=== PATIENT | male | born 1965 | race Caucasian/White ===

== ENCOUNTER 2019-12-16 05:05 | Emergency (ER) | payer OTHER, SELFPAY ==
--- NOTE | ~2019-12-16 | CT_ITS ---
EXAMINATION: CT abdomen pelvis w con DATE: 12/16/2019 05:48 INDICATION: Right upper quadrant and epigastric abdominal pain. History of pancreatitis. TECHNIQUE: Computed tomography (CT) of the abdomen and pelvis was performed with 100 cc Omnipaque 350 intravenous contrast. Automated exposure control and iterative reconstruction technique were employe d. Exam dose: 1120.56 mGy-cm total exam DLP. COMPARISON: 12/16/2019 CT abdomen pelvis FINDINGS: The lung bases are clear. Normal heart size. No pericardial or pleural effusion. There is an approximately 6 mm left hepatic cyst. The liver, gallbladder, bile ducts, pancreas, pancr eatic duct and spleen are otherwise unremarkable. Normal morphology of the adrenal glands. 7 mm right renal probable cyst. 5 mm left renal probable cyst. The kidneys are otherwise unremarkable . No urinary tract calculus or hydroureteronephrosis. Normal caliber of the abdominal aorta. No intraperitoneal or retroperitoneal or pelvic mass lesion or adenopathy or ascites. The urinary bladder is unremarkable. Mild prostate enlargement, multiple prostate calcifications. There bilateral fat-containing inguinal hernias. Normal appendix. There is minimal diverticulosis of the left colon; no CT evidence of diverticulitis. No bowel obstruction, bowel wall thickening, pneumatosis or intraperitoneal free air. Degenerative changes of the thoracic and lumbar spine; no suspicious osteolytic or osteoblastic lesio ns are noted. IMPRESSION: Small hepatic and renal probable cysts Bilateral fat-containing inguinal hernias Mild prostate enlargement, multiple prostate calcifications Reviewed, dictated and finalized at [facility]. Reviewed, dictated and finalized at [facility].
--- NOTE | ~2019-12-16 | XR_ITS ---
XR chest 2V DATE: 12/16/2019 05:52 INDICATION: Lower mid chest pain, epigastric pain, back pain, nausea TECHNIQUE: PA and lateral views COMPARISON: 09/11/2011 portable AP chest FINDINGS: Normal heart size. No hilar or mediastinal enlargement. Moderate bilateral hyperinflation. No pulmonary infiltrate or consolidation, pleural effusion or pulm onary vascular congestion or pneumothorax. Normal heart size. There is minimal aortic unfolding. Degenerative spurring of the thoracic spine. IMPRESSION: No active cardiopulmonary disease Reviewed, dictated and finalized at [facility].
--- NOTE | 2019-12-16 05:08 | ECG_ITS ---
Measurements Intervals [place] Rate: 61 P: 53 NV: 219 QRS: 61 QRSD: 107 T: 51 QT: 403 QTc: 407 Interpretive Statements SINUS RHYTHM WITH FIRST DEGREE AV BLOCK BASELINE ARTIFACT- II, III, AVR, AVL, AVF ABNORMAL ECG Electronically Signed On 12-16-2019 7:02:33 CDT by Jim Mortensen D.O.
--- NOTE | 2019-12-16 05:08 | ED.ABDPAIN ---
HPI - Abdominal Pain General Chief Complaint: Abdominal Pain <Sylvie Damico MD - Last Filed: 12/16/19 06:26> Stated Complaint: Pancreas <Sylvie Damico MD - Last Filed: 12/16/19 06:26> Time Seen by Provider: 12/16/19 05:07 <Sylvie Damico MD - Last Filed: 12/16/19 06:26> Source: patient and family <Sylvie Damico MD - Last Filed: 12/16/19 06:26> Mode of arrival: wheelchair <Sylvie Damico MD - Last Filed: 12/16/19 06:26> Limitations: no limitations <Sylvie Damico MD - Last Filed: 12/16/19 06:26> History of Present Illness HPI narrative: Patient is a 54-year-old male with a history of biliary colic, pancreatitis who presents for evaluation of abdominal pain. Patient reports pain awakened him from sleep, he experiences the pain in a bandlike pattern across his upper abdomen in the epigastric area. Pain is described as sharp, cramping in nature with radiation to the middle back. He denies lower back pain, flank pain, no ripping or tearing sensation. He denies associated chest pain, cough or shortness of breath. He does report nausea and feeling diaphoretic. He denies any vomiting. Patient states in the past he was able to control the symptoms with a low-fat diet. Patient states this evening for dinner he had a salad and a beer bratwurst, and that may have exacerbated his symptoms. <Sylvie Damico MD - Last Filed: 12/16/19 06:26> Related Data Home Medications: Home Medications Medication Instructions Recorded Confirmed atenolol 12/16/19 lisinopril 12/16/19 omega-3 fatty acids [Fish Oil] 1,000 mg PO DAILY 12/16/19 rosuvastatin mg 12/16/19 sertraline mg 12/16/19 <Sylvie Damico MD - Last Filed: 12/16/19 06:26> Allergies/Adverse Reactions: Allergies Allergy/AdvReac Type Severity Reaction Status Date / Time Penicillins Allergy Unknown Hives Verified 12/16/19 05:29 <Sylvie Damico MD - Last Filed: 12/16/19 06:26> Review of Systems Review of Systems: Narrative: CONSTITUTIONAL: Reports feeling diaphoretic ENT: Denies rhinorrhea, congestion, sore throat, or otalgia. CARDIOVASCULAR: Denies chest pain, palpitations, or edema. RESPIRATORY: Denies cough or dyspnea. GASTROINTESTINAL: Reports abdominal pain, nausea without vomiting GENITOURINARY: Denies dysuria or hematuria. SKIN: Denies rash or itching. MUSCULOSKELETAL: Reports middle back pain NEUROLOGIC: Denies headache, numbness, or weakness. <Sylvie Damico MD - Last Filed: 12/16/19 06:26> [facility] Past Medical History Medical History: Medical History (Updated 12/16/19 @ 06:26 by Sylvie Damico MD) Acid reflux Anxiety Biliary colic Hypertension Pancreatitis Seasonal allergies <Sylvie Damico MD - Last Filed: 12/16/19 06:26> Surgical History Surgical History: Surgical History (Updated 12/16/19 @ 05:30 by Sylvie Damico MD) H/O hand surgery <Sylvie Damico MD - Last Filed: 12/16/19 06:26> Family History Family History: Family History (Updated 08/10/15 @ 10:58 by DOCTOR UNKNOWN) Mother Patient's mother is , Onset Age: 51 Other Hypertension <Sylvie Damico MD - Last Filed: 12/16/19 06:26> Social History Social History: Social History Smoking status: Never smoker Alcohol intake: current <Sylvie Damico MD - Last Filed: 12/16/19 06:26> Exam Narrative: Exam Narrative: GENERAL: Awake, alert, conversant HEAD: Normocephalic, atraumatic. EYES: PERRLA and EOMI. ENT: Nares clear, no rhinorrhea or epistaxis. Mucous membranes moist. NECK: Supple. CHEST: No respiratory distress, breathing even and non labored HEART: Regular rate, sinus rhythm ABDOMEN:Non distended, mildly tender in periumbilical area, epigastric, right upper quadrant and left upper quadrant, no rebound, nonrigid, no guarding EXTREMITIES: Normal range of motion. No edema. SKIN: Warm, dry, no rash. NEURO:No focal deficits.
[2019-12-16 05:09] VITALS: BP 157/85; PULSE 61; RESP 12; TEMP 36.7; O2SAT 100
[2019-12-16 05:23] LABS: Basophils Percent Auto 0.3 % (0.2-1.2); Eosinophils Percent Auto 0.1 % (0-4.4); Hematocrit 48.4 % (42.0-52.0); Hemoglobin 16.7 g/dL (14.0-18.0); Immature Granulocyte Absolute 0.03 K/mm3 (0.00-0.031); Immature Granulocyte Percent A 0.3 % (0-0.5); Immature Platelet Fraction Pct 10.3 % (0.9-11.2); Lymphocytes Absolute Auto 1.66 K/mm3 (0.9-3.2); Lymphocytes Percent Auto 16.8 % (18.3-44.2); Mean Corpuscular HGB Conc 34.5 g/dl (32-36); Mean Corpuscular Hemoglobin 30.9 pg (26-34); Mean Corpuscular Volume 89.5 fl (80-100); Mean Platelet Volume 11.8 fl (7.4-10.4); Monocytes Absolute Auto 0.5 K/mm3 (0.1-0.6); Monocytes Percent Auto 4.9 % (2.6-8.5); Neutrophils Absolute Auto 7.7 K/mm3 (1.3-6.7); Neutrophils Percent Auto 77.6 % (45.5-73.1); Platelet Count Result 144 k/mm3 (150-375); Red Blood Count 5.41 M/mm3 (4.6-6.20); Red Cell Distribution Width 12.6 % (11.5-14.5); White Blood Count 9.9 K/mm3 (4.5-10.0)
[2019-12-16] MEDS: ONDANSETRON INJ 4 MG/2 ML VIAL IV PUSH (05:23)
[2019-12-16] MEDS: SODIUM CHLORIDE 0.9% IV 1,000 ML 999 ML IV CONT (05:23)
[2019-12-16] MEDS: MORPHINE SULFATE (*CRX) 4 MG/ML INJ IV PUSH (05:23)
[2019-12-16 05:34] LABS: Alanine Aminotransferase 26 U/L (4-50); Albumin Level 4.7 g/dL (3.5-5.1); Alkaline Phosphatase 103 U/L (38-126); Anion Gap 13 mmol/L (8-16); Aspartate Amino Transferase 41 U/L (17-59); Bilirubin,Total 0.6 mg/dL (0.2-1.3); Blood Urea Nitrogen 21 mg/dL (9-20); Calcium 10.4 mg/dL (8.4-10.2); Carbon Dioxide 24 mmol/L (22-30); Chloride 105 mmol/L (98-107); Estimated Glomerular Filt Rate > 60; Glucose 150 mg/dL (75-110); Lipase 239 U/L (23-300); Potassium 4.1 mmol/L (3.4-5.0); Sodium 142 mmol/L (137-145)
[2019-12-16 05:36] LABS: Glucose Point of Care 143 (65-105)
[2019-12-16 05:36] LABS: Partial Thromboplastin Time 30.3 SECONDS (22.3-36.8); Prothrombin Time 13.1 Seconds (11.1-14.7)
[2019-12-16 05:45] LABS: Troponin I < 0.012 ng/mL (0.000-0.034)
[2019-12-16] MEDS: DICYCLOMINE HCL INJ 20 MG/2 ML VIAL IM (06:19)
[2019-12-16] MEDS: BELLADONNA ALK/PHENOB ELIX 10 ML, MAG HYDROX/ALUMINUM HYD/SIMETH 30 ML, LIDOCAINE HCL 2... PO (06:19)
[2019-12-16] MEDS: ASPIRIN 81 MG CHEWABLE TABLET 324 MG PO (06:39)
[2019-12-16 06:54] LABS: Add Urine Microscopic? NO; Appearance Urine Clear (Clear); Bilirubin Urine Negative (Negative); Blood Urine Negative (Negative); Color Urine Yellow (Yellow); Glucose Urine UA Negative (Negative); Ketones Urine Negative (Negative); Leukocyte Esterase Ur Negative LEU/UL (Negative); Mucus Urine Rare /lpf; Nitrate Urine Negative (Negative); Protein Urine Negative (Negative); RBC Urine 0-2 /hpf (0-2); Squamous Epithelial Cell Urine Rare /hpf (Few); Urobilinogen Urine Negative mg/dL (<2.0); WBC Urine 0-3 /hpf
[2019-12-16 07:03] LABS: Specific Grav Ur > 1.060 (1.001-1.035)
--- NOTE | 2019-12-16 07:20 | PC.NURSE ---
rn report given to
[2019-12-16 07:26] VITALS: BP 152/90; PULSE 54; RESP 16; O2SAT 100
--- NOTE | 2019-12-16 07:26 | PC.NURSE ---
Assumed care of pt, pt is alert and upright on the stretcher, female at bedside. VSS. Pt states I need something else for pain, we need to figure out whats wrong. I felt better with the morphine and GI cocktail, but now the pain is back. - EDP aware.
[2019-12-16 08:25] VITALS: BP 146/80; PULSE 54; RESP 19; O2SAT 99
[2019-12-16 08:56] LABS: Troponin I < 0.012 ng/mL (0.000-0.034)
[2019-12-16 09:26] VITALS: BP 156/90; PULSE 50; RESP 14; O2SAT 99
== END 2019-12-16 09:27 | disposition home or self-care (01) ==
PROVIDERS: Emergency Medicine; Emergency Provider Emergency Medicine; PCP Family Medicine
DX: R10.13 Epigastric pain (principal); K21.9 Gastro-esophageal reflux disease without esophagitis; F41.9 Anxiety disorder, unspecified; I10 Essential (primary) hypertension; I44.0 Atrioventricular block, first degree; K40.90 Unilateral inguinal hernia, without obstruction or gangrene, not specified as recurrent; N40.0 Benign prostatic hyperplasia without lower urinary tract symptoms
CPT/HCPCS: 36415; 71046; 74177; 80053; 81003; 82948; 83690; 84484; 85025; 85055; 85610; 85730; 93005; 96361; 96372; 96374; 96375; 99284; A9270; J0500; J2270; J2405; J7030; Q9967

== ENCOUNTER 2020-01-06 09:55 | Outpatient (CLI) | payer OTHER, SELFPAY ==
--- NOTE | ~2020-01-06 | US_ITS ---
EXAMINATION: US right upper quadrant EXAM DATE: 01/06/2020 10:28 INDICATION: Abdominal pain. TECHNIQUE: Multiple grayscale and Doppler images of the abdomen right upper quadrant were obtained (jason y a technologist who performed the scan) and subsequently reviewed. There is no prior study for deondre colon. FINDINGS: The pancreatic head and body are normal in appearance. The pancreatic tail is not visualized. The l iver has normal echogenicity and contour. There are no focal liver lesions identified. There is no evidence of intrahepatic biliary duct dilation. Portal venous flow was seen in the hepatopedal, nor mal direction and has normal Doppler waveform. No right-sided hydronephrosis. Common bile duct measures 4 mm, which is normal. The gallbladder wall is normal in thickness, with ex pected amount of distention. No sonographic evidence of pericholecystic fluid. There is no cholelit hiases. Technologist performing exam reports patient did not demonstrate sonographic Cueto's sign. Please note that this sign is less reliable in patients who have received pain medication. IMPRESSION: 1. Unremarkable abdominal ultrasound exam. Reviewed, dictated and finalized at location [facility]. 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
== END 2020-01-06 09:56 | disposition home or self-care (01) ==
PROVIDERS: PCP Family Medicine; Visit Provider Nurse Practitioner
DX: R10.9 Unspecified abdominal pain (principal)
CPT/HCPCS: 76705

== ENCOUNTER 2020-06-14 15:05 | Outpatient (CLI) | payer OTHER, SELFPAY ==
--- NOTE | ~2020-06-14 | US_ITS ---
EXAMINATION: US soft tissue groin RT, US soft tissue groin LT DATE: 06/14/2020 15:53 INDICATION: Bilateral inguinal hernias TECHNIQUE: Multiple grayscale and Doppler ultrasound images of the left and right inguinal regions of concern were obtained. COMPARISON: CT abdomen and pelvis dated 12/16/2019 FINDINGS: There are bilateral fat-containing inguinal hernias which are also seen on prior CT. There is some mo vement of the fat within the left inguinal hernia with Valsalva. No herniated bowel identified. IMPRESSION: 1. Bilateral fat-containing inguinal hernias. Reviewed, dictated and finalized at location [facility]. IMPRESSION: 1. Bilateral fat-containing inguinal hernias.
== END 2020-06-14 15:06 | disposition home or self-care (01) ==
PROVIDERS: PCP Family Medicine; Visit Provider Nurse Practitioner Family
DX: K40.21 Bilateral inguinal hernia, without obstruction or gangrene, recurrent (principal)
CPT/HCPCS: 76882

== ENCOUNTER → 2020-07-10 02:07 | Outpatient (CLI) | payer OTHER, SELFPAY ==
[2020-07-10 19:55] LABS: SARS-CoV-2 RNA PCR Negative
== END ==
PROVIDERS: PCP Family Medicine; Visit Provider Internal Medicine Gastroenterology
DX: Z01.812 Encounter for preprocedural laboratory examination (principal); Z20.822 Contact with and (suspected) exposure to COVID-19
CPT/HCPCS: C9803; U0003; U0005

== ENCOUNTER 2020-07-13 03:23 | Day surgery (SDC) | payer OTHER, SELFPAY ==
[2020-07-01 13:41] VITALS: BMI 30.7
[2020-07-13 10:45] VITALS: BP 121/86; PULSE 62; RESP 20; TEMP 35.9; O2SAT 98
[2020-07-13] MEDS: LACTATED RINGERS 1,000 ML 150 ML IV CONT (10:53)
--- NOTE | 2020-07-13 11:02 | WPDGICN ---
Assessment and Plan Assessment and plan (1) History of colon polyps: Code(s): Z86.010 - Personal history of colonic polyps Status: Acute Assessment and Plan: Patient has a history of colon polyps as well as a family history of colon polyps for this reason colonoscopy will be performed now and should be considered at 5 year intervals in the future. (2) Inguinal hernia without obstruction or gangrene: Qualifiers: Laterality: bilateral Recurrence: non-recurrent Qualified Code(s): K40.20 - Bilateral inguinal hernia, without obstruction or gangrene, not specified as recurrent Code(s): K40.90 - Unilateral inguinal hernia, without obstruction or gangrene, not specified as recurrent Status: Acute Assessment and Plan: Patient followed by Dr. Clay for possible a ventral hernia repair. GI Consult Note Consult date/time: 07/13/20 11:02 HPI: Alessio Figueroa is a 54 year old male Presents for screening colonoscopy. patient reports his weight appetite bowel movements are normal. He denies abdominal pain or bleeding. Patient is known to have had colon polyps in the past most recently 5 years ago. His family history is significant for colon polyps in brother and father. Recently seen by surgery and evaluation for left inguinal hernia. Plan is for screening colonoscopy prior to anticipated hernia repair. Review of Systems Review of Systems: All systems reviewed & are unremarkable except as noted in HPI and below PMFSH Past Medical History Medical History (Updated 06/25/20 @ 15:07 by Margaret Camilo) Acid reflux Anxiety Biliary colic Hypertension Pancreatitis Seasonal allergies Family History Family History (Updated 06/24/20 @ 10:03 by Libia Rucker [facility]) Mother Patient's mother is , Onset Age: 51 Father Hypertension Hernia Sibling Hodgkin lymphoma Sibling Diabetes mellitus Heart disease Hypertension Social History Social History (Updated 06/24/20 @ 10:04 by Libia Rucker [facility]) Smoking status: Never smoker Alcohol intake: former Drinks per week: 4 Alcohol use details: NONE SINCE 2018 Substance use: current Substance use type: marijuana Last use: 06/30/20 Living arrangements: with friend(s) 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 Gender identity (if verbalized by the patient): Male Spiritual care concerns: No Meds Home Medications and Allergies Home Medications Medication Instructions Recorded Confirmed Type atenolol 25 mg PO DAILY 12/16/19 07/01/20 History lisinopril 5 mg PO DAILY 12/16/19 07/01/20 History rosuvastatin 20 mg PO DAILY 12/16/19 07/01/20 History sertraline 50 mg PO DAILY 12/16/19 07/01/20 History melatonin 10 mg capsule 10 mg PO QHS 06/23/20 07/01/20 History coenzyme Q10 75 mg capsule 75 mg PO DAILY 06/24/20 07/01/20 History tamsulosin 0.4 mg capsule 0.4 mg PO DAILY #30 cap 06/24/20 07/01/20 Rx Allergies Allergy/AdvReac Type Severity Reaction Status Date / Time Penicillins Allergy Unknown Hives Verified 07/13/20 10:41 Vital Signs Vital Signs - 24 hr 07/13/20 10:45 Temperature 96.7 F L Pulse Rate 62 Respiratory Rate 20 Blood Pressure 121/86 Pulse Oximetry 98 Exam Narrative: Exam Narrative: Physical exam reveals patient be alert. Vital signs stable. HEENT exam is unremarkable. Patient is anicteric. Lungs are clear to auscultation and percussion. Heart is without murmur or extra sounds. Abdominal exam bowel sounds are present soft nontender with no organomegaly. Digital external rectal exam is normal.
--- NOTE | 2020-07-13 11:14 | WPDANESEPPF ---
Anes - Initial Pre Proc Eval Procedure: Operation Date: 07/13/20 11:45 Proposed Procedures p Screening Colonoscopy - Alessio Norris MD Date/Time: 07/13/20 11:14 Surgeon: Alessio Norris MD Pre Op Diagnosis: hx of colon polyps Patient Data Age: 54 Gender: M Height: 5 ft 10 in Weight: 91.8 kg Last Vital Signs Temp 96.7 F L 07/13/20 10:45 Pulse 62 07/13/20 10:45 Resp 20 07/13/20 10:45 BP 121/86 07/13/20 10:45 Pulse Ox 98 07/13/20 10:45 Allergies Allergy/AdvReac Type Severity Reaction Status Date / Time Penicillins Allergy Unknown Hives Verified 07/13/20 10:41 Home Medications Medication Instructions Recorded Confirmed Type atenolol 25 mg PO DAILY 12/16/19 07/01/20 History lisinopril 5 mg PO DAILY 12/16/19 07/01/20 History rosuvastatin 20 mg PO DAILY 12/16/19 07/01/20 History sertraline 50 mg PO DAILY 12/16/19 07/01/20 History melatonin 10 mg capsule 10 mg PO QHS 06/23/20 07/01/20 History coenzyme Q10 75 mg capsule 75 mg PO DAILY 06/24/20 07/01/20 History tamsulosin 0.4 mg capsule 0.4 mg PO DAILY #30 cap 06/24/20 07/01/20 Rx Patient hx anesthesia problems: none Family hx anesthesia problems: none [facility] Past Medical History Medical History (Updated 06/25/20 @ 15:07 by Margaret Camilo) Acid reflux Anxiety Biliary colic Hypertension Pancreatitis Seasonal allergies Family History Family History (Updated 06/24/20 @ 10:03 by Libia Rucker [facility]) Mother Patient's mother is , Onset Age: 51 Father Hypertension Hernia Sibling Hodgkin lymphoma Sibling Diabetes mellitus Heart disease Hypertension Social History Social History (Updated 06/24/20 @ 10:04 by Libia Rucker PROMOTIONAL DEMONSTRATOR) Smoking status: Never smoker Alcohol intake: former Drinks per week: 4 Alcohol use details: NONE SINCE 2018 Substance use: current Substance use type: marijuana Last use: 06/30/20 Living arrangements: with friend(s) 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 Questions were solicited and answers provided to the satisfaction of the patient/family/POA.
[2020-07-13 11:36] VITALS: BP 93/61; PULSE 54; RESP 26; O2SAT 92
[2020-07-13 11:46] VITALS: BP 96/64; PULSE 53; RESP 25; O2SAT 92
[2020-07-13 11:56] VITALS: BP 101/70; PULSE 59; RESP 16; O2SAT 94
== END 2020-07-13 12:05 | disposition home or self-care (01) ==
PROVIDERS: PCP Family Medicine; Visit Provider Internal Medicine Gastroenterology
PROC: 0DJD8ZZ Inspection of Lower Intestinal Tract, Via Natural or Artificial Opening Endoscopic (ICD-10-PCS; CPT 45378; principal; 2020-07-13 11:45)
DX: Z12.11 Encounter for screening for malignant neoplasm of colon (principal); D12.4 Benign neoplasm of descending colon; K40.90 Unilateral inguinal hernia, without obstruction or gangrene, not specified as recurrent; K21.9 Gastro-esophageal reflux disease without esophagitis; F41.9 Anxiety disorder, unspecified; I10 Essential (primary) hypertension; F12.90 Cannabis use, unspecified, uncomplicated; Z86.010 Personal history of colon polyps
CPT/HCPCS: 45385; 88305; C9803; J2001; J2704; J7120; U0003; U0005

== ENCOUNTER 2020-07-23 09:51 | Outpatient (CLI) | payer OTHER, SELFPAY ==
--- NOTE | 2020-07-23 10:04 | ECG_ITS ---
Measurements Intervals [place] Rate: 47 P: 53 TX: 246 QRS: 62 QRSD: 94 T: 61 QT: 407 QTc: 363 Interpretive Statements SINUS BRADYCARDIA WITH FIRST DEGREE AV BLOCK ABNORMAL ECG Electronically Signed On 07-23-2020 11:21:06 CDT by Jim Mortensen D.O.
[2020-07-23 10:23] LABS: Hematocrit 47.6 % (42.0-52.0); Hemoglobin 15.6 g/dL (14.0-18.0); Mean Corpuscular HGB Conc 32.8 g/dl (32-36); Mean Corpuscular Hemoglobin 29.8 pg (26-34); Mean Corpuscular Volume 90.8 fl (80-100); Mean Platelet Volume 11.8 fl (7.4-10.4); Platelet Count Result 122 k/mm3 (150-375); Red Blood Count 5.24 M/mm3 (4.6-6.20); Red Cell Distribution Width 13.3 % (11.5-14.5); White Blood Count 8.1 K/mm3 (4.5-10.0)
[2020-07-23 10:34] LABS: Alanine Aminotransferase 20 U/L (4-50); Albumin Level 4.4 g/dL (3.5-5.1); Alkaline Phosphatase 81 U/L (38-126); Anion Gap 10 mmol/L (8-16); Aspartate Amino Transferase 29 U/L (17-59); Bilirubin,Total 0.4 mg/dL (0.2-1.3); Blood Urea Nitrogen 19 mg/dL (9-20); Calcium 10.1 mg/dL (8.4-10.2); Carbon Dioxide 25 mmol/L (22-30); Chloride 107 mmol/L (98-107); Estimated Glomerular Filt Rate > 60; Glucose 127 mg/dL (75-110); Potassium 4.2 mmol/L (3.4-5.0); Sodium 142 mmol/L (137-145)
== END 2020-07-23 09:52 | disposition home or self-care (01) ==
LOC: ANHSURGERY 09:56
PROVIDERS: PCP Family Medicine; Visit Provider Surgery
DX: Z01.818 Encounter for other preprocedural examination (principal); K40.20 Bilateral inguinal hernia, without obstruction or gangrene, not specified as recurrent; I44.0 Atrioventricular block, first degree
CPT/HCPCS: 36415; 80053; 85027; 86850; 86900; 86901; 93005

== ENCOUNTER → 2020-07-24 01:42 | Outpatient (CLI) | payer OTHER, SELFPAY ==
[2020-07-24 19:38] LABS: SARS-CoV-2 RNA PCR Negative
== END ==
PROVIDERS: PCP Family Medicine; Visit Provider Surgery
DX: Z01.812 Encounter for preprocedural laboratory examination (principal); Z20.822 Contact with and (suspected) exposure to COVID-19
CPT/HCPCS: C9803; U0003; U0005

== ENCOUNTER 2020-07-26 01:50 | Day surgery (SDC) | payer OTHER, SELFPAY ==
[2020-07-26] VITALS (12 sets, daily range): BP systolic 131–161; BP diastolic 74–109; PULSE 48–95; RESP 13–23; TEMP 36.2; O2SAT 96–100; BMI 31.6
--- NOTE | ~2020-07-26 | XR_ITS ---
EXAMINATION: XR chest 1V portable DATE: 07/27/2020 00:05 INDICATION: Chest pain TECHNIQUE: frontal view of the chest was obtained. COMPARISON: Chest radiograph dated 12/16/2019 FINDINGS: The lungs are clear with no focal airspace opacities, pulmonary edema, pleural effusion or pneumothor ax. The cardiomediastinal silhouette is normal. There is some lucency underlying the diaphragm suspic ious for free intraperitoneal gas which may be related to reported recent hernia surgery. IMPRESSION: 1. No acute cardiopulmonary disease. 2. Suggestion of very small amount of free intraperitoneal gas below the diaphragm which could be rel ated to reported recent hernia surgery. Reviewed, dictated and finalized at location A. IMPRESSION: 1. No acute cardiopulmonary disease. 2. Suggestion of very small amount of free intraperitoneal gas below the diaphr agm which could be related to reported recent hernia surgery.
[2020-07-26] MEDS: LACTATED RINGERS 1,000 ML 30 ML IV CONT ×3 (09:40→20:15)
[2020-07-26] MEDS: ACETAMINOPHEN 500 MG TABLET 1000 MG PO (10:19)
--- NOTE | 2020-07-26 10:20 | WPDANESEPPF ---
Anes - Initial Pre Proc Eval Procedure: Operation Date: 07/26/20 11:00 Proposed Procedures p Laparoscopic Totally Extra Peritoneal Bilateral Inguinal Hernia Repair - Peterson Clay MD Date/Time: 07/26/20 10:20 Surgeon: Peterson Clay MD Pre Op Diagnosis: bilateral inguinal hernia Patient Data Age: 54 Gender: M Height: 5 ft 10 in Weight: 95 kg Allergies Allergy/AdvReac Type Severity Reaction Status Date / Time Penicillins Allergy Unknown HIVES OR Verified 07/26/20 09:25 RASH A CHILD Home Medications Medication Instructions Recorded Confirmed Type atenolol 25 mg PO QAM 12/16/19 07/26/20 History lisinopril 5 mg PO QAM 12/16/19 07/26/20 History rosuvastatin 20 mg PO DAILY 12/16/19 07/26/20 History melatonin 10 mg capsule 10 mg PO QHS PRN 06/23/20 07/26/20 History coenzyme Q10 75 mg capsule 75 mg PO DAILY 06/24/20 07/26/20 History docusate sodium [Colace] 50 mg PO HS PRN 07/22/20 07/26/20 History sertraline 100 mg PO QAM 07/22/20 07/26/20 History tamsulosin 0.4 mg PO HS 07/22/20 07/26/20 History Patient hx anesthesia problems: none Family hx anesthesia problems: none PMFSH Past Medical History Medical History (Updated 07/22/20 @ 08:27 by Margaret Camilo) Acid reflux Anxiety Biliary colic Hypertension Pancreatitis Seasonal allergies Surgical History Surgical History (Updated 07/22/20 @ 08:05 by Libia Rucker CMA) H/O surgical amputation of finger Family History Family History Mother Patient's mother is , Onset Age: 51 Father Hypertension Hernia Sibling Hodgkin lymphoma Sibling Diabetes mellitus Heart disease Hypertension Social History Social History Smoking status: Never smoker Alcohol intake: former Drinks per week: 4 Substance use: never Substance use type: marijuana Last use: 06/30/20 Living arrangements: other Additional living arrangements comments: [place] 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 Questions were solicited and answers provided to the satisfaction of the patient/family/POA.
[2020-07-26] MEDS: KETOROLAC 15 MG/ML VIAL (*BKC) IV PUSH (10:21)
--- NOTE | 2020-07-26 11:09 | WPDHPUPDATE1 ---
History and Physical Update Update Date/Time: 07/26/20 11:09 History and Physical has been reviewed, including an updated exam of the patient. There are NO changes in the patient's condition. Risks, benefits, and alternatives have been discussed and questions answered. Patient agrees to proceed with procedure.
[2020-07-26] MEDS: BUPIVACAINE/EPINEPHRINE 0.5% 10 ML VIAL 20 ML INFILTRATE (11:15)
[2020-07-26] MEDS: ceFAZolin 2 GM/D5W 50 ML 2 GM/50 ML BAG IVPB (11:34)
[2020-07-26] MEDS: fentaNYL CITRATE INJ (*CRX) 100 MCG/2 ML VIAL 25 MCG IV PUSH ×5 (18:10→21:10)
--- NOTE | 2020-07-26 18:27 | WPDURCON ---
Assessment and Plan Assessment and plan (1) Ectopic testicle: Code(s): Q53.00 - Ectopic testis, unspecified Status: Acute Urology Consult Note HPI Date Seen: 07/26/20 Requesting Physician: Peterson Clay MD Primary Care Provider: Gonzalo Gupta MD Consult Narrative Narrative: Alessio Figueroa is a 54 year old male has a known to our practice. He was undergoing laparoscopic left inguinal herniorrhaphy when we were consulted by Dr. Pascale Clay for evaluation of ectopic testicle. His left testicle had been displaced into the peritoneal cavity in the course of dissection of the left inguinal hernia. Laparoscopically, the testicle appeared normal and the spermatic cord was uninjured. For specifics on replacement of the testicle in the left hemiscrotum with orchiopexy please see the operative note. Review of Systems Review of Systems: ROS unobtainable: Yes unobtainable due to medical condition PMFSH Past Medical History Medical History (Updated 07/26/20 @ 18:30 by Toñito Patel MD) Acid reflux Anxiety Biliary colic Hypertension Pancreatitis Seasonal allergies Surgical History Surgical History (Updated 07/22/20 @ 08:05 by Libia Rucker CMA) H/O surgical amputation of finger Family History Family History Mother Patient's mother is , Onset Age: 51 Father Hypertension Hernia Sibling Hodgkin lymphoma Sibling Diabetes mellitus Heart disease Hypertension Social History Social History Smoking status: Never smoker Alcohol intake: former Drinks per week: 4 Substance use: never Substance use type: marijuana Last use: 06/30/20 Living arrangements: other Additional living arrangements comments: [place] 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 Gender identity (if verbalized by the patient): Male Spiritual care concerns: No Meds Home Medications and Allergies Home Medications Medication Instructions Recorded Confirmed Type atenolol 25 mg PO QAM 12/16/19 07/26/20 History lisinopril 5 mg PO QAM 12/16/19 07/26/20 History rosuvastatin 20 mg PO DAILY 12/16/19 07/26/20 History melatonin 10 mg capsule 10 mg PO QHS PRN 06/23/20 07/26/20 History coenzyme Q10 75 mg capsule 75 mg PO DAILY 06/24/20 07/26/20 History docusate sodium 50 mg PO HS PRN 07/22/20 07/26/20 History sertraline 100 mg PO QAM 07/22/20 07/26/20 History tamsulosin 0.4 mg PO HS 07/22/20 07/26/20 History hydrocodone-acetaminophen 1 tablet PO Q6H PRN #20 tablet 07/26/20 Rx Allergies Allergy/AdvReac Type Severity Reaction Status Date / Time Penicillins Allergy Unknown HIVES OR Verified 07/26/20 09:25 RASH A CHILD Vital Signs Vital Signs - 24 hr 07/26/20 08:56 07/26/20 18:00 Temperature 97.1 F L 97.2 F L Pulse Rate 48 L 70 Respiratory Rate 20 17 Blood Pressure 131/83 131/78 Pulse Oximetry 100 98
--- NOTE | 2020-07-26 18:31 | P.OP_ITS ---
Procedure Note - Detailed Date of Procedure 07/26/20 Pre-op Diagnosis bilateral inguinal hernia Post-op Diagnosis other ( Ectopic left testicle) Procedure Performed scrotal exploration with left orchiopexy Surgeon Toñito Patel MD Automation And Control Engineer None Anesthesia general Indications ectopic left testicle Findings normal left testicle Description of Procedure Patient is in the operative suite Dr. Clay is undertaking it laparoscopic inguinal herniorrhaphy. During the course of dissection his left testicle became displaced into his peritoneal cavity. With inspection both the left t esticle and spermatic cord are on injured and he has manipulated the testicle back into the inguinal canal. With traction on the testicle is manipulated into the dependent portion of the left hemiscrotum, replacing it into its orthotopic position. After completion of the laparoscopic inguinal herniorrhaphy I made a incision in the median raphe of the scrotum and carried it into the left tunica vaginalis. Testicle was again examined and found to be normal both in appearance and palpation. Using a try angulated pattern of 2 0 Prolene sutures the left testicle is pexed in the left hemiscrotum in an orthotopic position. Dartos muscle was closed with 3 O chromic. Scrotal skin is likewise closed with 3 O chromic. Estimated Blood Loss -20.0 Urine Output -300.0 Packing No Pathology none sent Complications No immediate complications Condition stable
[2020-07-26] MEDS: ONDANSETRON INJ 4 MG/2 ML VIAL IV PUSH ×2 (19:07→23:21)
[2020-07-26] MEDS: diphenhydrAMINE HCl INJ 50 MG/ML VIAL 25 MG IV PUSH (19:20)
[2020-07-26] MEDS: SCOPOLAMINE 1.5 MG PATCH TRANSDERM (19:24)
--- NOTE | 2020-07-26 20:52 | SUR.PHASEII ---
2044 Dr Clay notified on pt current status and pt/spouse desire for pt to stay the night. dr clay ok with and will put orders in. 2048 spoke with laborer beam house and dr clay wanting pt to stay the night on 2nd medical floor.
--- NOTE | 2020-07-26 21:20 | PM.EVENT ---
Event Note Event Note Event Note: Demerol 25 mg given IVP at 2057 for shivering.
--- NOTE | 2020-07-26 21:42 | SUR.PHASEII ---
2129 pt has had a total of about 3500ml in iv fluids since start of surgery. savage cath was removed after surgery and had about 300ml out. pt has only voided about 15ml, bladder scan only showed 90ml, pt had tried to void a couple of times. dr mai is aware of this and has orders in for straight cath if needed.
--- NOTE | 2020-07-26 21:47 | SUR.PHASEII ---
2672 sbar faxed floor notified
--- NOTE | 2020-07-26 22:03 | SUR.PHASEII ---
2104 25mg iv push demerol given, but unable to have elvia plascencia crna, lenny he couldn't sign.
--- NOTE | 2020-07-26 22:33 | ADMGEN ---
This patient, Alessio Figueroa, was admitted to Medical Room 244-. Patient/family oriented to hospital policies and general routines including ID bracelet, bed and alarms, visiting hours, pain management, procedures, bathroom and other care routines, personal items, smoking policy, room service/diet, and visiting hours. Information on how to activate the Rapid Response Team has been discussed. Patient/Family are encouraged to report perceived risks to care and to ask questions if they do not understand what they are told or what they should do.
--- NOTE | 2020-07-26 22:41 | W.PM.PROC2 ---
Procedure Note - Detailed Date of Procedure 07/26/20 Pre-op Diagnosis bilateral inguinal hernia Post-op Diagnosis same Procedure Performed 1. Totally Extra-peritoneal bilateral inguinal hernia repairs with mesh 2. Left Orchieopexy by Dr. Patel Surgeon Peterson Clay MD Shingle Carrier Julianna LE.OR. Ditch Cleaner Anesthesia general Indications Left groin discomfort PE findings of bilateral inguinal hernias. Findings Large left indirect and small right indirect inguinal hernias Left testicle was found to be with the preperitoneal space after completion of the dissection of very large left inguinal hernia. Help was requested and provided by Dr. Patel. Please see his op note for further details. Description of Procedure After appropriate marking of the operative sites (bilateral groins) prior to surgery, the patient was taken to the operating room. After induction of adequate general endotracheal anesthesia by [facility] staff, a savage cather was placed and then the patient was carefully prepped and draped in a sterile fashion. A timeout was performed confirming the procedure and site of surgery to be the bilateral inguinal areas. Following this, local anesthetic was infiltrated into the umbilical area and a vertical incision was made just below the umbilicus. I carefully dissected down to the the anterior rectus sheath on the right and then made a 1 cm vertical slit in the fascia just off the midline. The rectus muscle was retracted to the right and then just in front of the posterior rectus sheath, a dissecting balloon was passed onto the pubic bone and this was insufflated with 40 pumps, while watching with the 0 degree laparoscope. It appeared that I was in the proper plane. Following this, the dissecting balloon was removed and replaced by a Yung cannula with a 25 cc circular balloon on it. Following this, the 0 degree laparoscope was used to carefully place two slim-line 5mm [employer] trocars in the midline inferior to the umbilicus. One suprapubic and other one fci between the umbilicus and the pubic bone. Tedious dissection then occurred in the preperitoneal space exposing the Jax's ligament, the cord structures, the muscular tissue anteriorly, and the retroperitoneum on each side. I purposely dissected out the side of the larger hernia,[left][right], so that I knew that we would be able to fix the more symptomatic side. With the peritoneum dissected back far enough on each side I was then able visualize the posterior peritoneum to be sure that the posterior edge of the mesh would lay in a way that the posterior peritoneum would then fall on the mesh and not go up under it. I then dissected up to the level of the umbilicus and was ready for mesh placement. After carefully confirming all sites and that the mesh would cover the direct space, I carefully rolled the left and right mesh sequentially and slid them through the 12 mm trocar at the umbilical level down into the preperitoneal space. These unfurled nicely and sat nicely against the groin structures. The appropriate sides were matched and it was easy to see that the pieces of mesh nicely covered all spaces and went back nicely into the preperitoneal space along the anterior-superior iliac spine. I took a picture of carefully, which showed that the mesh will cover the preperitoneal groin well, and had come down to the posterior border of the peritoneum. Should be mentioned that the dissection the left side was difficult. Was difficult to separate the large indirect hernia sac the cord structures. Once I had completed dissecting the hernia sac off cord structures I carefully opened the drapes felt the scrotum checking to be sure that the left testicle seem to be in good position and it seemed to be. This was done because the wound be sure that I pulled the testicle up into the preperitoneal space. Minor bleeding occurred while we were placing the mesh this case I did
[2020-07-26] MEDS: LACTATED RINGERS 1,000 ML 75 ML IV CONT (22:51)
--- NOTE | 2020-07-26 23:37 | ECG_ITS ---
Measurements Intervals Tracy Rate: 59 P: 55 ID: [id number] QRS: 59 QRSD: 101 T: 42 QT: 428 QTc: 426 Interpretive Statements SINUS BRADYCARDIA WITH FIRST DEGREE AV BLOCK BASELINE ARTIFACT- II, III, AVR, AVL, AVF, V1 ABNORMAL ECG Electronically Signed On 07-27-2020 7:10:23 CDT by Jim Mortensen D.O.
[2020-07-27] VITALS: BP 154/54; PULSE 70; RESP 20; TEMP 36.2; O2SAT 99
--- NOTE | 2020-07-27 | ECHO_ITS ---
Patient Info Name: Alessio Figueroa Age: 54 years : 1965 Gender: Male Ht: 70 in Wt: 220 lbs BSA: 2.25 m2 HR: 53 bpm Heart Rhythm: Sinus Rhythm Exam Date: 07/27/2020 10:54 AM Exam Location: [facility] Patient Status: Outpatient Admit Date: 07/26/2020 Staff Ordering Physician: Nicole Rice PA-C Aircraft Armament Mechanic: MARY Attending Provider: Peterson Clay MD Referring Physician: Dwayne CORRIGAN; Exam Type: CA echo doppler color flow Study Info Indications R07.89 - Other chest pain Complete two-dimensional, color flow and Doppler transthoracic echocardiogram is performed. Summary 1. Complete two-dimensional, color flow and Doppler transthoracic echocardiogram is performed. 2. Left ventricular systolic function is normal, estimated at 60-65%. 3. There is no increased left ventricular wall thickness. 4. The left ventricular diastolic function is grade II diastolic dysfunction. 5. Left atrial chamber dimension is moderately enlarged. 6. There is trace mitral valve regurgitation. 7. There is trace tricuspid valve regurgitation. 8. No pulmonary hypertension, estimated pulmonary arterial systolic pressure is 22 mmHg. Left Ventricle Left ventricular chamber dimension is normal. Left ventricular systolic function is normal, estimated at 60-65%. There is no increased left ventricular wall thickness. The left ventricular diastolic function is grade II diastolic dysfunction. Right Ventricle Right ventricular chamber dimension is normal. Right ventricular systolic function is normal. Left Atria Left atrial chamber dimension is moderately enlarged. Right Atria Right atrial chamber dimension is normal. Aortic Valve The aortic valve is not well visualized. There is no aortic valve stenosis. There is no aortic valve regurgitation. Pulmonic Valve The pulmonic valve is not well visualized. Mitral Valve The mitral valve has normal leaflets. There is trace mitral valve regurgitation. Tricuspid Valve The tricuspid valve leaflets are normal. There is trace tricuspid valve regurgitation. No pulmonary hypertension, estimated pulmonary arterial systolic pressure is 22 mmHg. Pericardium/Pleural The pericardium appears normal. There is no pericardial effusion. Inferior Vena Cava Normal inferior vena cava with >50% collapse upon inspiration consistent with normal right atrial pressure, 5 mmHg. Aorta The aortic root size at the sinus of Valsalva is normal. Left Ventricular Outflow Tract Name Value Normal LVOT 2D LVOT Diameter 2.3 cm Pulmonic Valve Name Value Normal PV Doppler PV Peak Gradient 4 mmHg Mitral Valve Name Value Normal MV Doppler MV Decel Dickey
[2020-07-27 00:45] LABS: Troponin I < 0.012 ng/mL (0.000-0.034)
[2020-07-27] MEDS: MORPHINE SULFATE (*CRX) 4 MG/ML INJ IV PUSH (02:19)
[2020-07-27 04:00] VITALS: BP 122/66; PULSE 64; RESP 20; TEMP 36.7; O2SAT 98
[2020-07-27 05:40] LABS: Basophils Percent Auto 0.1 % (0.2-1.2); Hematocrit 38.5 % (42.0-52.0); Hemoglobin 12.7 g/dL (14.0-18.0); Immature Granulocyte Absolute 0.04 K/mm3 (0.00-0.031); Immature Granulocyte Percent A 0.3 % (0-0.5); Lymphocytes Absolute Auto 1.18 K/mm3 (0.9-3.2); Lymphocytes Percent Auto 9.5 % (18.3-44.2); Mean Corpuscular Hemoglobin 29.5 pg (26-34); Mean Corpuscular Volume 89.5 fl (80-100); Mean Platelet Volume 12.4 fl (7.4-10.4); Monocytes Absolute Auto 0.7 K/mm3 (0.1-0.6); Monocytes Percent Auto 5.7 % (2.6-8.5); Neutrophils Absolute Auto 10.5 K/mm3 (1.3-6.7); Neutrophils Percent Auto 84.4 % (45.5-73.1); Platelet Count Result 114 k/mm3 (150-375); Red Cell Distribution Width 13.2 % (11.5-14.5); White Blood Count 12.4 K/mm3 (4.5-10.0)
[2020-07-27 05:46] LABS: Alanine Aminotransferase 16 U/L (4-50); Albumin Level 3.6 g/dL (3.5-5.1); Alkaline Phosphatase 58 U/L (38-126); Anion Gap 9 mmol/L (8-16); Aspartate Amino Transferase 31 U/L (17-59); Bilirubin,Total 0.2 mg/dL (0.2-1.3); Blood Urea Nitrogen 16 mg/dL (9-20); Carbon Dioxide 25 mmol/L (22-30); Chloride 108 mmol/L (98-107); Estimated CRCL calculation 87 ml/min; Estimated Glomerular Filt Rate > 60; Glucose 132 mg/dL (75-110); Magnesium 1.6 mg/dL (1.6-2.3); Potassium 3.9 mmol/L (3.4-5.0); Sodium 142 mmol/L (137-145)
[2020-07-27 06:00] VITALS: BP 122/66; PULSE 64; RESP 20; TEMP 36.7; O2SAT 98
--- NOTE | 2020-07-27 07:47 | PM.IMCN ---
Assessment and Plan Assessment and plan (1) Chest pain: Code(s): R07.9 - Chest pain, unspecified Status: Acute Assessment and Plan: 30 minute episode of chest pressure, diaphoresis, and emesis occurred postoperatively. Resolved now. Troponin negative. EKG unchanged with no ST abnormalities. ACS seems unlikely. Symptoms may have been related to anesthesia vs anxiety. Will obtain echocardiogram to evaluate for wall motion abnormalities Recommend PCP follow up with outpatient repeat stress test (2) Inguinal hernia without obstruction or gangrene: Qualifiers: Laterality: bilateral Recurrence: non-recurrent Qualified Code(s): K40.20 - Bilateral inguinal hernia, without obstruction or gangrene, not specified as recurrent Code(s): K40.90 - Unilateral inguinal hernia, without obstruction or gangrene, not specified as recurrent Status: Acute Assessment and Plan: S/p bilateral inguinal hernia repair with mesh by Dr. Clay on 07/26/20. 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 Patel on 07/26/20. Management per urology (4) Hypertension: Qualifiers: Hypertension type: essential hypertension Qualified Code(s): I10 - Essential (primary) hypertension Code(s): I10 - Essential (primary) hypertension Status: Acute Assessment and Plan: Blood pressure reviewed. Initial reading slightly elevated, likely secondary to pain. Improved with last BP 122/66. Continue atenolol and lisinopril (5) Anxiety: Code(s): F41.9 - Anxiety disorder, unspecified Status: Inactive Assessment and Plan: Reported feeling anxious post-operatively, which may have contributed to chest pain as above. He reports feeling his anxiety has been poorly controlled since he stopped taking alprazolam. Continue sertraline He has PCP appointment on 07/30/20 and I have encouraged him to discuss medication adjustment with his PCP HPI Data of Consult Consult date: 07/27/20 Requesting Physician: Peterson Clay MD Primary Care Provider: Gonzalo Gupta MD Consult Narrative Reason for consult: Chest pain Narrative: Date of admission: 07/26/20 Date of service: 07/27/20 Alessio Figueroa is a 54 year old male with a history of hypertension, GERD, anxiety, and intermittent non-ischemic chest pain who is now status post bilateral inguinal hernia repair and left orchiopexy on 07/26/20. He tolerated the procedure well. He reports lower abdominal soreness which he rates as 4/10. He has been urinating today and has had no issues including dysuria or hematuria. He is passing gas. Last night, he developed an episode of chest pain following surgery which lasted for 30 minutes. He reports becoming diaphoretic with onset of mid sternal chest pressure which he rated as 5/10 with a subsequent episode of emesis. He reports after he was able to drink some water, his chest pain resolved. He immediately attributed this to anxiety, stating he has had episodes like this for about 8 years with multiple negative workups. He follows with his primary care physician who is aware of this, and has been seen by cardiology, again with no findings. Reports negative stress test around 4-5 years ago. On further evaluation, his troponin level was found to be negative. EKG reviewed with no changes from pre-op EKG 3 days prior. At this time, he is feeling in his usual state of health with no pain. Denies nausea, fever, chills, dizziness, lightheadedness, arm pain, jaw pain, palpitations, GERD. Review of Systems Review of Systems: All systems reviewed & are unremarkable except as noted in HPI and below [facility] Past Medical History Medical History (Updated 07/27/20 @ 08:13 by Nicole Rice PA-C) Acid reflux Anxiety Biliary colic Hypertension Pancreati
[2020-07-27] MEDS: ROSUVASTATIN 10 MG TABLET 20 MG PO (08:05)
[2020-07-27] MEDS: SERTRALINE HCL 50 MG TABLET 100 MG PO (08:05)
[2020-07-27 08:06] VITALS: PULSE 52
[2020-07-27] MEDS: lisinopriL 5 MG TABLET PO (08:06)
[2020-07-27] MEDS: atenoloL 25 MG TABLET PO (08:06)
[2020-07-27] MEDS: ENOXAPARIN 40 MG/0.4 ML SYRINGE SUB-Q (08:07)
[2020-07-27] MEDS: ACETAMINOPHEN 500 MG TABLET 1000 MG PO (08:07)
--- NOTE | 2020-07-27 09:54 | PM.DS ---
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 Patient had difficulty with some nausea and also with urinating after surgery. We also would like to watch him after a or kill pexy on the left because he had a large indirect hernia that cause the testicle to pull up into the preperitoneal space when I dissected out the hernia sac. On postop day 1 the patient was feeling pretty good. on the evening that he state over he had to short episodes of some chest pain. This on the 2nd want troponin EKG were done felt to be normal. He had a consultation with the hospitalist in the morning before discharge and a echocardiogram was done. Results of the echocardiogram in summary: Summary 1. Complete two-dimensional, color flow and Doppler transthoracic echocardiogram is performed. 2. Left ventricular systolic function is normal, estimated at 60-65%. 3. There is no increased left ventricular wall thickness. 4. The left ventricular diastolic function is grade II diastolic dysfunction. 5. Left atrial chamber dimension is moderately enlarged. 6. There is trace mitral valve regurgitation. 7. There is trace tricuspid valve regurgitation. 8. No pulmonary hypertension, estimated pulmonary arterial systolic pressure is 22 mmHg. He was urinating in good amounts. This having no difficulty or burning with urination. Both testes were descended and he was ready to go home. Was tolerating diet without nausea by morning. Time spent discussing smoking cessation with patient: more than 10 minutes Status at Discharge Cognitive/behavioral status at discharge: Normal Functional status at discharge: independent ambulation Time Spent with Patient Time attestation: Total time spent providing and/or coordinating discharge services: Time spent: Less than 30 minutes Specific discharge activities: Encouraged patient be up walking 3 times a day Encourage patient to follow the instruction sheet provided on the discharge orders. Patient to see me in the office in 2 weeks. Encouraged patient to wear scrotal support for at least 1 week. Exam Const: General: cooperative, no acute distress, alert and awake Orientation/consciousness: patient oriented x3 HENMT: Mouth: Yes moist mucous membranes Neck: Neck: normal visual inspection Chest: Chest palpation & inspection: normal inspection of the chest Resp: Effort & Inspection: normal respiratory effort Auscultation: clear to auscultation bilaterally Cardio: Jugular venous distension: no JVD Rate: regular rate Rhythm: regular rhythm GI: Inspection: incision ( Clean and dry with surgical glue in place) Rectal Exam: deferred Other: no significant bulging in either groin. : Scrotum: scrotum normal and testes descended bilaterally ( specifically left testicle nicely palpable within the scrotum.) Neuro: General: patient oriented x3 and moves all extremities Speech: normal speech Extrem: General: normal exam except as not
[2020-07-27 10:00] VITALS: BP 109/65; PULSE 53; RESP 16; TEMP 36.7; O2SAT 97
--- NOTE | 2020-07-27 11:13 | WPDANESPN ---
Anes - Prog Note Post-Op Date/Time: 07/27/20 11:13 Cardiovascular status: normal Respiratory status: normal Airway patency: baseline Mental status: baseline Post-Op hydration status: normal Vital Signs: Last Vital Signs Temp 36.7 C 07/27/20 10:00 Pulse 53 L 07/27/20 10:00 Resp 16 07/27/20 10:00 BP 109/65 07/27/20 10:00 Pulse Ox 97 07/27/20 10:00 Pain Score (VAS): 0/10. Patient resting in bed at time of assessment, appears comfortable. Support person at bedside. Pt described mild nausea with relief with prn meds. I/O: Intake & Output 07/26/20 07/27/20 07/27/20 23:59 07:59 15:59 Intake Total 1150 450 240 Output Total 30 1550 Balance 1120 -1100 240 Laboratory Tests 07/27/20 04:55 07/27/20 04:55 07/26/20 07/27/20 07/27/20 23:56 04:55 04:55 WBC 12.4 H RBC 4.30 L Hgb 12.7 L Hct 38.5 L MCV 89.5 MCH 29.5 MCHC 33.0 RDW 13.2 Plt Count 114 L MPV 12.4 H Immature Gran % (Auto) 0.3 Neut % (Auto) 84.4 H Lymph % (Auto) 9.5 L Nuckolls % (Auto) 5.7 Eos % (Auto) 0.0 Baso % (Auto) 0.1 L Lymph # (Auto) 1.18 Nuckolls # (Auto) 0.7 H Eos # (Auto) 0.0 Baso # (Auto) 0.0 Abs Immat Gran (auto) 0.04 H Absolute Neuts (auto) 10.5 H Absolute Nucleated RBC 0.0 Nucleated RBC % 0.0 Sodium 142 Potassium 3.9 Chloride 108 H Carbon Dioxide 25 Anion Gap 9 BUN 16 Creatinine 1.00 Estim Creat Clear Calc 87 Estimated GFR > 60 Glucose 132 H Calcium 9.0 Magnesium 1.6 Total Bilirubin 0.2 AST 31 ALT 16 Alkaline Phosphatase 58 Troponin I < 0.012 Total Protein 6.0 L Albumin 3.6 Post-procedural complaints: nausea (relief with prn meds. ) Patient Feedback: Patient satisfied with anesthetic care.
== END 2020-07-27 13:28 | disposition home or self-care (01) ==
LOC: ANHSURGERY 17:49 → ANH2MED 22:25
PROVIDERS: Surgery; Urology; PCP Family Medicine; Visit Provider Surgery
PROC: (CPT 49650; principal; 2020-07-26 11:00)
PROC: (CPT 54640; 2020-07-26 11:00)
DX: K40.20 Bilateral inguinal hernia, without obstruction or gangrene, not specified as recurrent (principal); Q53.01 Ectopic testis, unilateral; R07.9 Chest pain, unspecified; I10 Essential (primary) hypertension; K21.9 Gastro-esophageal reflux disease without esophagitis; F41.9 Anxiety disorder, unspecified; F12.90 Cannabis use, unspecified, uncomplicated
CPT/HCPCS: 54640; 49650; 36415; 71045; 80053; 83735; 84484; 85025; 85027; 86850; 86900; 86901; 93005; 93306; A9270; C1727; C1781; C9803; J0330; J0690; J1100; J1170; J1200; J1650; J1885; J2175; J2250; J2270; J2405; J2704; J3010; J7030; J7120; U0003; U0005

== ENCOUNTER → 2020-09-27 13:44 | Outpatient (CLI) | payer OTHER, SELFPAY ==
--- NOTE | ~2020-09-27 | CT_ITS ---
EXAMINATION: CT pelvis w con DATE: 09/27/2020 14:16 INDICATION: Left groin swelling post hernia repair 6-8 weeks prior. TECHNIQUE: Computed tomography (CT) of the pelvis was performed without intravenous contrast. Automat ed exposure control and iterative reconstruction technique were employed. The dose-length product was 676.50 mGy-cm. COMPARISON: 12/16/2019 FINDINGS: Postoperative changes of bilateral inguinal hernia mesh repairs. There is a residual/recurrent modera te-sized indirect left inguinal hernia, slightly smaller than on the prior study which appears to ext end beyond the inferior margin of the mesh repair. No herniated bowel. Visualized portions of the bow els including the appendix are normal. Bladder is normal. No free peritoneal fluid in the pelvis. No pathologically enlarged pelvic or inguinal lymphadenopathy. Mild to moderate lower lumbar spondylosis . IMPRESSION: 1. Changes of interval bilateral inguinal hernia mesh repairs with likely recurrent moderate-sized fa t-containing left inguinal hernia extending below the inferior margin of the mesh. Reviewed, dictated and finalized at location A. IMPRESSION: 1. Changes of interval bilateral inguinal hernia mesh repairs with likely recur rent moderate-sized fat-containing left inguinal hernia extending below the inf erior margin of the mesh.
[2020-09-27 14:05] LABS: Estimated Glomerular Filt Rate > 60
== END ==
PROVIDERS: PCP Family Medicine; Visit Provider Surgery
DX: R19.09 Other intra-abdominal and pelvic swelling, mass and lump (principal)
CPT/HCPCS: 72193; Q9967

== ENCOUNTER 2020-10-29 08:45 | Outpatient (CLI) | payer OTHER, SELFPAY ==
[2020-10-29 09:11] LABS: Basophils Percent Auto 0.4 % (0.2-1.2); Eosinophils Percent Auto 0.6 % (0-4.4); Hematocrit 47.6 % (42.0-52.0); Hemoglobin 15.7 g/dL (14.0-18.0); Immature Granulocyte Absolute 0.02 K/mm3 (0.00-0.031); Immature Granulocyte Percent A 0.3 % (0-0.5); Immature Platelet Fraction Pct 9.8 % (0.9-11.2); Lymphocytes Absolute Auto 2.37 K/mm3 (0.9-3.2); Lymphocytes Percent Auto 34.6 % (18.3-44.2); Mean Corpuscular Hemoglobin 30.2 pg (26-34); Mean Corpuscular Volume 91.5 fl (80-100); Mean Platelet Volume 11.5 fl (7.4-10.4); Monocytes Absolute Auto 0.5 K/mm3 (0.1-0.6); Monocytes Percent Auto 7.7 % (2.6-8.5); Neutrophils Absolute Auto 3.9 K/mm3 (1.3-6.7); Neutrophils Percent Auto 56.4 % (45.5-73.1); Platelet Count Result 133 k/mm3 (150-375); Red Cell Distribution Width 13.2 % (11.5-14.5); White Blood Count 6.8 K/mm3 (4.5-10.0)
[2020-10-29 09:17] LABS: Anion Gap 9 mmol/L (8-16); Blood Urea Nitrogen 21 mg/dL (9-20); Calcium 9.8 mg/dL (8.4-10.2); Carbon Dioxide 22 mmol/L (22-30); Chloride 108 mmol/L (98-107); Estimated Glomerular Filt Rate > 60; Glucose 107 mg/dL (65-110); Potassium 4.2 mmol/L (3.4-5.0); Sodium 139 mmol/L (137-145)
== END 2020-10-29 08:46 | disposition home or self-care (01) ==
LOC: ANHSURGERY 08:47
PROVIDERS: PCP Family Medicine; Visit Provider Surgery
DX: Z01.812 Encounter for preprocedural laboratory examination (principal); K40.91 Unilateral inguinal hernia, without obstruction or gangrene, recurrent
CPT/HCPCS: 36415; 80048; 85025; 85055

== ENCOUNTER 2020-11-01 02:16 | Day surgery (SDC) | payer OTHER, SELFPAY ==
[2020-10-27 09:24] VITALS: BMI 29.5
[2020-11-01] VITALS (14 sets, daily range): BP systolic 111–174; BP diastolic 69–85; PULSE 46–79; RESP 14–20; TEMP 36.3; O2SAT 97–100; BMI 28.8
[2020-11-01] MEDS: KETOROLAC 15 MG/ML VIAL (*BKC) IV PUSH (06:34)
[2020-11-01] MEDS: ACETAMINOPHEN 500 MG TABLET 1000 MG PO (06:35)
--- NOTE | 2020-11-01 07:15 | WPDANESEPPF ---
Anes - Initial Pre Proc Eval Procedure: Operation Date: 11/01/20 07:30 Proposed Procedures p Open Repair Recurrent Left Inguinal Hernia with Mesh - Peterson Clay MD Date/Time: 11/01/20 07:15 Surgeon: Peterson Clay MD Pre Op Diagnosis: Recurrent Lt Ing Hernia Patient Data Age: 55 Gender: M Height: 1.78 m Weight: 91.2 kg Last Vital Signs Temp 97.3 F L 11/01/20 06:10 Pulse 54 L 11/01/20 06:10 Resp 16 11/01/20 06:10 BP 111/71 11/01/20 06:10 Pulse Ox 100 11/01/20 06:10 Allergies Allergy/AdvReac Type Severity Reaction Status Date / Time Penicillins Allergy Unknown HIVES OR Verified 11/01/20 06:10 RASH A CHILD Home Medications Medication Instructions Recorded Confirmed Type atenolol 25 mg PO QAM 12/16/19 11/01/20 History lisinopril 5 mg PO QAM 12/16/19 10/27/20 History rosuvastatin 20 mg PO DAILY 12/16/19 10/27/20 History melatonin 10 mg capsule 10 mg PO QHS PRN 06/23/20 10/27/20 History coenzyme Q10 75 mg capsule 75 mg PO DAILY 06/24/20 10/27/20 History sertraline 100 mg PO QAM 07/22/20 11/01/20 History Patient hx anesthesia problems: none Family hx anesthesia problems: none PMFSH Past Medical History Medical History Acid reflux Anxiety Biliary colic Hypertension Pancreatitis Seasonal allergies Surgical History Surgical History H/O surgical amputation of finger History of bilateral inguinal hernia repair 07/26/20 History of surgery on wrist Bilateral fracture repair Status post orchiopexy Left testicle; 07/26/20 Family History Family History Mother Patient's mother is , Onset Age: 51 Heart disease Father Hypertension Hernia Sibling Hodgkin lymphoma Sibling Diabetes mellitus Heart disease Hypertension Social History Social History Social History: Mr. Figueroa lives at home with his fiance. He is independent in his daily activities. He works at [employer]. His PCP is Dr. Gupta. He would like to be a full code. Smoking status: Never smoker Alcohol intake: never Alcohol use details: NONE SINCE 2018 Substance use: current Substance use type: marijuana Other substance usage details: Smokes marijuana regularly 2-3 times per day Living arrangements: with family Gender identity (if verbalized by the patient): Male Spiritual care concerns: No Anes - Eval Final PreProcedure Day of Procedure 11/01/20 07:15 Patient weight: overweight Heart: regular rate and rhythm Lungs: clear to auscultation Airway: Mallampati scale class II Neurological: alert and oriented Last oral intake: >/= 8 hours ASA classification: III Emergent: no Anesthetic plan: proceed Anesthesia type and monitoring: general GIVS and standard monitoring Informed Consent: The patient's anesthetic plan and its attendant risks and benefits were discussed with the patient/family/POA. Questions were solicited and answers provided to the satisfaction of the patient/family/POA.
--- NOTE | 2020-11-01 07:17 | WPDHPUPDATE1 ---
History and Physical Update Update Date/Time: 11/01/20 07:17 History and Physical has been reviewed, including an updated exam of the patient. There are NO changes in the patient's condition. Risks, benefits, and alternatives of an open Lt. inguinal hernia repair with mesh have been discussed and questions answered. Patient agrees to proceed with procedure.
[2020-11-01] MEDS: LACTATED RINGERS 1,000 ML 30 ML IV CONT ×4 (07:21→15:00)
[2020-11-01] MEDS: ceFAZolin 2 GM/D5W 50 ML 2 GM/50 ML BAG IVPB (07:27)
[2020-11-01] MEDS: BUPIVACAINE HCL 0.5% PF 30 ML VIAL INFILTRATE (09:31)
--- NOTE | 2020-11-01 10:17 | W.PM.PROC2 ---
Procedure Note - Detailed Date of Procedure 11/01/20 Pre-op Diagnosis Recurrent Lt Ing Hernia Post-op Diagnosis same (also lipoma of the cord) Procedure Performed Open Left recurrent inguinal hernia repair with mesh Surgeon Peterson Clay MD Home Help Aide Gabi LE, OR 1st assist Anesthesia general (GIVS) and local (With initially with mix of 1% xylocaine and 0.5% Marcaine. Then 7 cc of 0.5% Marcaine at the end) Indications See office note. Patient developed a recurrent left inguinal hernia suspected to be direct or indirect after difficult laparoscopic totally extraperitoneal bilateral inguinal hernia repair. This was delineated by CT scan last month. Findings Patient had what appeared to be a significant direct defect and hostile box triangle. Even though thorough dissection was completed on the anterior medial border of the cord structures I did not find an actual indirect inguinal hernia sac. Description of Procedure The patient was placed in the supine position on the operating room table. After induction of adequate MAC anesthesia by [facility] Anesthesia staff, we carefully prepped the entire abdomen and scrotum with chlorhexidine. One sterile towel was placed underneath the scrotum. Four towels were placed around the left lower quadrant. Following this, a time-out was performed with the surgical team and the patient's surgical procedure and site was confirmed. We then carefully outlined a curvilinear incision in the left groin area and a curvilinear incision was made after introducing a mixture of local anesthetic, using 0.5% Marcaine with epinephrine and 1% Xylocaine plain as both an ilioinguinal nerve block and at the incision site with a 25 gauge needle. Following this, I carefully made the incision, and carried it down through the subcutaneous tissue. Lionel's fascia was incised and then we identified the external oblique aponeurosis and the external ring. Following this, the same mixture of local anesthetic was infiltrated underneath the external oblique aponeurosis and this was split in the direction of it's fibers with a #15 blade initially and then using metzenbaum scissors. I then opened the external oblique through the external ring and incised this somewhat posteriorly and superiorly exposing the ilioinguinal nerve. This nerve was carefully preserved laterally and then I carefully and meticulously dissected out the cord structures at the level of the pubic tubercle. I then surrounded these structures at the level of pubic tubercle and placed a Jaimee drain around them. I then carefully dissected the hernia sac up and off of the cord tissues, and brought it up and out of the incision. We carefully dissected the layers and cremasteric tissues off what appeared to be a possible indirect hernia sac. However, with thorough discussion dissection of the anterior medial border on a of the structures attached to the cord no definite indirect hernia sac was identified. Therefore, I can not carefully dissected out what appeared to be lipoma of the cord this was excised using 2 p.m. clamped after we used Bovie cautery to isolated. I tied the tissues with a full 3 0 Vicryl ties and then we were able to reduce all of this Juma a cord structure back through the internal ring. No true indirect inguinal Hernia sac was identified during this dissection. Following this, we took care to recreate an appropriate Left inguinal canal. This was done by carefully dissecting from the internal ring down to the pubic bone, dissecting away any cremasteric tissue. A running suture of 0 Prolene was placed in the pubic tubercle and run up to the internal ring, approximating the Transversalis fascia to the ilioinguinal ligament. In order to narrow the internal ring opening after running the proline I placed 1 Ethibond break-off 2-0 suture inferiorly 1 above the cord structures to carefully narrow the internal ring to about 2 cm in diam
[2020-11-01] MEDS: ONDANSETRON INJ 4 MG/2 ML VIAL IV PUSH (13:10)
[2020-11-01] MEDS: oxyCODONE HCL (*CRX) 5 MG TAB IR PO (13:10)
[2020-11-01] MEDS: FAMOTIDINE 20 MG/2 ML VIAL IV PUSH (15:28)
--- NOTE | 2020-11-01 15:41 | SUR.PHASEII ---
1510 - dr. mai in op recovery. dr. mai updated on pt status. pepcid order received. will call dr. mai if pt has not urinated by 16:30.
--- NOTE | 2020-11-01 16:27 | SUR.PHASEII ---
1615 - pt voided without difficulty.
== END 2020-11-01 16:37 | disposition home or self-care (01) ==
PROVIDERS: PCP Family Medicine; Visit Provider Surgery
PROC: (CPT 49520; principal; 2020-11-01 07:30)
DX: K40.91 Unilateral inguinal hernia, without obstruction or gangrene, recurrent (principal); D17.6 Benign lipomatous neoplasm of spermatic cord; I10 Essential (primary) hypertension; K21.9 Gastro-esophageal reflux disease without esophagitis; F41.9 Anxiety disorder, unspecified; F12.90 Cannabis use, unspecified, uncomplicated
CPT/HCPCS: 49520; 36415; 80048; 85025; 85055; 88304; A9270; C1781; J0690; J1100; J1885; J2250; J2370; J2405; J2704; J3010; J7120

== ENCOUNTER 2022-04-02 07:23 | Emergency (ER) | payer OTHER, SELFPAY ==
--- NOTE | ~2022-04-02 | CT_ITS ---
EXAMINATION: CT abdomen pelvis w con DATE: 04/02/2022 08:56 INDICATION: Epigastric abdominal pain, nausea and vomiting. Constipation. TECHNIQUE: Computed tomography (CT) of the abdomen and pelvis was performed with 100 CC Omnipaque 350 intravenous contrast. Automated exposure control and iterative reconstruction technique were employe d. Exam dose: 1064.45 mGy-cm total exam DLP. COMPARISON: 09/27/2020 CT pelvis FINDINGS: Normal heart size. No pericardial or pleural effusion. The lung bases are clear. There is circumferential soft tissue in the distal esophagus, possibly due to esophagitis. Esophageal neoplasm is not excluded. Endoscopic correlation is suggested given the history of epigastric abdomi nal pain and the CT esophageal findings. 5.6 mm left hepatic cyst. No other hepatic space-occupying mass lesion. 6 mm left splenic rounded hypoattenuating lesion, not likely of any clinical significance. No pancreatic mass lesion or calcification. The gallbladder is present. No bile duct or pancreatic duct dilatation. Normal morphology of the adrenal glands. 9 mm right renal cyst. No ureteral calculus or hydroureteronephrosis. The urinary bladder is unremark able. Prostate calcifications. There is mild osseous chronic calcification of the abdominal aorta and iliac arteries but no aneurysm . No intraperitoneal or retroperitoneal or pelvic mass lesion or adenopathy or ascites. Normal appendix. No bowel obstruction, bowel wall thickening, pneumatosis or intraperitoneal free air .. There is evidence of bilateral inguinal herniorrhaphy. There is asymmetric fat accumulation within the left inguinal canal. Moderately severe degenerative disc disease at L5-S1. There is spurring of the thoracic and lumbar sp ine. No suspicious osteolytic or osteoblastic lesions. IMPRESSION: Circumferential soft tissue thickening of the distal esophagus; consider endoscopic manjit elation to evaluate esophagitis versus esophageal neoplasm Small left hepatic cyst 9 mm right renal cyst Normal appendix No bowel obstruction or free air Reviewed, dictated and finalized at [facility]. Reviewed, dictated and finalized at [facility]. [facility] IMPRESSION: Circumferential soft tissue thickening of the distal esophagus; co nsider endoscopic correlation to evaluate esophagitis versus esophageal neoplas m Small left hepatic cyst 9 mm right renal cyst Normal appendix No bowel obstruction or free air
[2022-04-02 07:28] VITALS: BP 167/110; PULSE 58; RESP 18; TEMP 36.4; O2SAT 96
[2022-04-02 07:39] VITALS: PULSE 59; RESP 14
[2022-04-02 07:55] VITALS: PULSE 63; RESP 14; O2SAT 100
--- NOTE | 2022-04-02 08:12 | ED.ABDPAIN ---
HPI - Abdominal Pain General Chief Complaint: Abdominal Pain Stated Complaint: abd pain, unable to have BM Time Seen by Provider: 04/02/22 07:36 History of Present Illness HPI narrative: This is a 56-year-old male with past medical history of hypertension and pancreatitis, who presents to the emergency department complaining of epigastric abdominal pain, nausea and nonbloody vomiting for the past day and a half. He states the pain is sharp, rated 6/10, without radiation. He denies any aggravating factors and states it improved with a hot bath. He also complains of diffuse myalgias with fevers. He denies chest pain or cough. He states he has been able to pass small amounts of stool and is able to pass gas. Related Data Home Medications Medication Instructions Recorded Confirmed atenolol 25 mg tablet 25 mg PO QAM 12/16/19 05/12/21 lisinopril 5 mg tablet 5 mg PO QAM 12/16/19 05/12/21 rosuvastatin 20 mg tablet 20 mg PO DAILY 12/16/19 05/12/21 coenzyme Q10 75 mg capsule (Ultra 75 mg PO DAILY 06/24/20 05/12/21 CoQ10) sertraline 100 mg tablet 100 mg PO QAM 07/22/20 05/12/21 wheat dextrin 3 gram/3.5 gram oral 1.5 g PO TID 05/11/21 05/12/21 powder packet (Benefiber Clear Sugar Free(dextrin)) Allergies Allergy/AdvReac Type Severity Reaction Status Date / Time Penicillins Allergy Unknown HIVES OR Verified 05/11/21 10:42 RASH A CHILD Review of Systems Review of Systems: CONSTITUTIONAL: fever, chills, and sweats. EYES: Denies visual changes, redness, or discharge. ENT: Denies rhinorrhea, congestion, sore throat, or otalgia. CARDIOVASCULAR: Denies chest pain, palpitations, or edema. RESPIRATORY: Denies cough or dyspnea. GASTROINTESTINAL: Epigastric abdominal pain, nausea, vomiting, patient denies diarrhea. GENITOURINARY: Denies dysuria or hematuria. SKIN: Denies rash or itching. MUSCULOSKELETAL: Diffuse myalgias denies back pain, joint pain NEUROLOGIC: Denies headache, numbness, dizziness, or weakness. PSYCHIATRIC: Denies anxiety or depression. [facility] Past Medical History Medical History Acid reflux Anxiety Biliary colic Hypertension Pancreatitis Seasonal allergies Surgical History Surgical History H/O surgical amputation of finger History of bilateral inguinal hernia repair 07/26/20 History of inguinal hernia repair Open left recurrent inguinal hernia repair with mesh 11/01/20 History of surgery on wrist Bilateral fracture repair Status post orchiopexy Left testicle; 07/26/20 Family History Family History Mother Patient's mother is , Onset Age: 51 Heart disease Father Hypertension Hernia Sibling Hodgkin lymphoma Sibling Diabetes mellitus Heart disease Hypertension Social History Social History Social History: Mr. Figueroa lives at home with his fiance. He is independent in his daily activities. He works at [employer]. His PCP is Dr. Gupta. He would like to be a full code. Smoking status: Never smoker Alcohol intake: never Alcohol use details: NONE SINCE 2018 Substance use: current Substance use type: marijuana Other substance usage details: Smokes marijuana regularly 2-3 times per day Living arrangements: with family Occupation/Education: occupation Gender identity (if verbalized by the patient): Male Spiritual care concerns: No Exam Narrative: GENERAL: Well-developed, well-nourished, in mild distress due to pain, diaphoretic HEAD: Normocephalic, atraumatic. EYES: PERRLA and EOMI. ENT: Nares clear, no rhinorrhea or epistaxis. Mucous membranes moist. Oropharynx without tonsillar hypertrophy exudate or other lesions. CHEST: Clear to auscultation. No respiratory distress. No wheezes rales or rhonchi HEART: Reg
[2022-04-02 08:13] LABS: Basophils Percent Auto 0.3 % (0.2-1.2); Eosinophils Percent Auto 0.2 % (0-4.4); Hematocrit 49.4 % (42.0-52.0); Hemoglobin 16.6 g/dL (14.0-18.0); Immature Granulocyte Absolute 0.04 K/mm3 (0.00-0.031); Immature Granulocyte Percent A 0.3 % (0-0.5); Lymphocytes Absolute Auto 2.32 K/mm3 (0.9-3.2); Lymphocytes Percent Auto 18.6 % (18.3-44.2); Mean Corpuscular HGB Conc 33.6 g/dl (32-36); Mean Corpuscular Hemoglobin 29.7 pg (26-34); Mean Corpuscular Volume 88.4 fl (80-100); Mean Platelet Volume 11.7 fl (7.4-10.4); Monocytes Absolute Auto 0.7 K/mm3 (0.1-0.6); Monocytes Percent Auto 5.8 % (2.6-8.5); Neutrophils Absolute Auto 9.3 K/mm3 (1.3-6.7); Neutrophils Percent Auto 74.8 % (45.5-73.1); Platelet Count Result 155 k/mm3 (150-375); Red Blood Count 5.59 M/mm3 (4.6-6.20); White Blood Count 12.5 K/mm3 (4.5-10.0)
--- NOTE | 2022-04-02 08:18 | ECG_ITS ---
Measurements Intervals [place] Rate: 56 P: 36 KS: 227 QRS: 40 QRSD: 106 T: 27 QT: 428 QTc: 416 Interpretive Statements SINUS BRADYCARDIA WITH FIRST DEGREE AV BLOCK COMPARED TO ECG 07/26/2020 23:53:21 NO SIGNIFICANT CHANGES Electronically Signed On 04-02-2022 18:40:39 [employer] M[employer] OPERATOR by Carina Amaro M.D.
[2022-04-02] MEDS: SODIUM CHLORIDE 0.9% IV 1,000 ML 999 ML IV CONT (08:19)
[2022-04-02 08:23] LABS: Alanine Aminotransferase 24 U/L (6-50); Alkaline Phosphatase 119 U/L (38-126); Anion Gap 9 mmol/L (8-16); Aspartate Amino Transferase 32 U/L (17-59); Bilirubin,Total 0.7 mg/dL (0.2-1.3); Blood Urea Nitrogen 21 mg/dL (9-20); Calcium 9.8 mg/dL (8.4-10.2); Carbon Dioxide 21 mmol/L (22-30); Chloride 106 mmol/L (98-107); Estimated CRCL calculation 81 ml/min; Estimated Glomerular Filt Rate > 60; Glucose 159 mg/dL (65-110); Lipase 172 U/L (23-300); Sodium 136 mmol/L (137-145)
[2022-04-02] MEDS: PROCHLORPERAZINE EDISYLATE 10 MG/2 ML VIAL IV PUSH (08:23)
[2022-04-02 08:44] LABS: Troponin I < 0.012 ng/mL (0.000-0.034)
[2022-04-02 08:53] VITALS: PULSE 66; O2SAT 99
[2022-04-02 09:06] LABS: Influenza A QL RT-PCR Negative (Negative); Influenza B QL RT-PCR Negative (Negative); SARS-CoV-2 RNA PCR Negative
[2022-04-02 09:34] LABS: Appearance Urine Clear (Clear); Bilirubin Urine Negative (Negative); Blood Urine Negative (Negative); Color Urine Yellow (Yellow); Glucose Urine UA Negative (Negative); Ketones Urine Negative (Negative); Leukocyte Esterase Ur Negative LEU/UL (Negative); Nitrate Urine Negative (Negative); Protein Urine Trace mg/dL (Negative); Urobilinogen Urine 0.2 mg/dL (<2.0)
[2022-04-02 09:36] LABS: Mucus Urine Heavy /lpf; Squamous Epithelial Cell Urine Rare /hpf (Few); WBC Urine 0-3 /hpf
[2022-04-02 09:38] LABS: Add Urine Microscopic? YES
== END 2022-04-02 10:15 | disposition home or self-care (01) ==
PROVIDERS: Emergency Provider Preventive Medicine Aerospace Medicine; PCP Family Medicine
DX: R10.13 Epigastric pain (principal); R11.2 Nausea with vomiting, unspecified; R93.3 Abnormal findings on diagnostic imaging of other parts of digestive tract; Z20.822 Contact with and (suspected) exposure to COVID-19; I10 Essential (primary) hypertension; K21.9 Gastro-esophageal reflux disease without esophagitis; F41.9 Anxiety disorder, unspecified; Z89.029 Acquired absence of unspecified finger(s); R00.1 Bradycardia, unspecified; I44.0 Atrioventricular block, first degree; K76.89 Other specified diseases of liver; N28.1 Cyst of kidney, acquired
CPT/HCPCS: 36415; 74177; 80053; 81001; 83690; 84484; 85025; 87636; 93005; 96365; 96375; 99284; J0131; J0780; J7030; Q9967

== ENCOUNTER 2024-06-05 12:19 | Emergency (ER) | payer OTHER, SELFPAY ==
[2024-06-05] VITALS (11 sets, daily range): BP systolic 148–167; BP diastolic 88–110; PULSE 51–59; RESP 11–16; TEMP 36.2–36.7; O2SAT 94–100
--- NOTE | ~2024-06-05 | XR_ITS ---
EXAMINATION: XR ankle RT 2V DATE: 06/05/2024 12:39 INDICATION: Dislocation TECHNIQUE: Anteroposterior and lateral views of the right ankle were obtained. COMPARISON: None. FINDINGS: Oblique fracture of the distal fibula with fracture line exiting the medial cortex proximally 1 cm ab ove the level of the tibiotalar joint line. There is a transverse fracture across the medial malleolu s at the level of the tibial plafond. Suggestion of a nondisplaced fracture of the posterior malleolu s. The talar dome is dislocated and along with the medial malleolar and lateral malleolar fragments i s displaced laterally and angulated 40 degrees laterally with respect to the axis of the lower leg. N o fracture and unremarkable joint spaces in the visualized mid and hindfoot. Moderate-sized plantar c alcaneal spur. IMPRESSION: 1. Right ankle trimalleolar fracture dislocation. Reviewed, dictated and finalized at [facility].
--- NOTE | ~2024-06-05 | XR_ITS ---
HISTORY: post-reduction COMPARISON: Examination is compared with prior study performed approximately 45 minutes earlier TECHNIQUE: 2 views of the right ankle were performed FINDINGS: Redemonstration of a trimalleolar fracture of the right ankle with near anatomic alignment post reduc tion. IMPRESSION: Near anatomic alignment post reduction Reviewed, dictated and finalized at location A.
--- NOTE | 2024-06-05 12:37 | ED_ITS ---
HPI - General Adult General Chief complaint: Extremity Injury, Lower Stated complaint: fall Time Seen by Provider: 06/05/24 12:30 History of Present Illness HPI narrative: 58-year-old male presenting to the emergency department for evaluation for a right ankle fracture dislocation. Patient was working when he stepped backwards and tripped over a tire causing him to roll his right ankle. Patient arrived to the emergency department with a significant right ankle deformity. Patient is neurovascularly intact. Patient was treated with 50 mcg of IV fentanyl prior to arrival. Related Data Home Medications ?Medication ?Instructions ?Recorded ?Confirmed ?Last Taken ?Type atenolol 25 mg tablet 25 mg PO QAM 12/16/19 05/12/21 11/01/20 05:00 History lisinopril 5 mg tablet 5 mg PO QAM 12/16/19 05/12/21 07/25/20 History rosuvastatin 20 mg tablet 20 mg PO DAILY 12/16/19 05/12/21 07/25/20 History coenzyme Q10 75 mg capsule (Ultra 75 mg PO DAILY 06/24/20 05/12/21 07/23/20 History CoQ10) sertraline 100 mg tablet 100 mg PO QAM 07/22/20 05/12/21 11/01/20 05:00 History wheat dextrin 3 gram/3.5 gram oral 1.5 g PO TID 05/11/21 05/12/21 Unknown History powder packet (Benefiber Clear Sugar Free(dextrin)) Allergies Allergy/AdvReac Type Severity Reaction Status Date / Time Penicillins Allergy Unknown HIVES OR Verified 05/11/21 10:42 RASH A CHILD Review of Systems Review of Systems: All systems reviewed & are unremarkable except as noted in HPI and below PMFSH Past Medical History Medical History Acid reflux Anxiety Biliary colic Hypertension Pancreatitis Seasonal allergies Surgical History Surgical History H/O surgical amputation of finger History of bilateral inguinal hernia repair 07/26/20 History of inguinal hernia repair Open left recurrent inguinal hernia repair with mesh 11/01/20 History of surgery on wrist Bilateral fracture repair Status post orchiopexy Left testicle; 07/26/20 Family History Family History Mother Patient's mother is , Onset Age: 51 Heart disease Father Hypertension Hernia Sibling Hodgkin lymphoma Sibling Diabetes mellitus Heart disease Hypertension Social History Social History Social History: Mr. Figueroa lives at home with his fiance. He is independent in his daily activities. He works at [employer]. His PCP is Dr. Gupta. He would like to be a full code. Smoking status: Never smoker Alcohol intake: never Alcohol use details: NONE SINCE 2018 Substance use: current Substance use type: marijuana Other substance usage details: couple times a day. Living arrangements: with family Occupation/Education: occupation Gender identity (if verbalized by the patient): Male Spiritual care concerns: No Exam Narrative: APPEARANCE: Uncomfortable appearing HEAD: normocephalic, atraumatic. EYES: PERRLA/EOMI, conjunctivae clear. NOSE: Normal no drainage EARS:TMS clear with good light reflex. THROAT: Pharynx clear, no exudate. NECK: Supple. No adenopathy, no masses. RESPIRATORY: Airway patent, respirations nonlabored. Clear to auscultation bilaterally, no rales, rhonchi, wheezing. CARDIOVASCULAR: Regular rate and rhythm without murmurs rubs or gallops. ABDOMINAL: Soft, nontender, nondistended, normal bowel sounds MUSCULOSKELETAL: Deformity of right ankle, no break in skin, neurovascularly intact NEURO: Alert. Cranial nerves II through XII intact. Good gait. Good coordination SKIN: Warm, dry. Normal Color Course Vital Signs Vital signs: Vital Signs Temperature 97.2 F L 06/05/24 12:22 Pulse Rate 56 L 06/05/24 12:22 Respiratory Rate 16 06/05/24 12:22 Blood Pressure 160/110 H 06/05/24 12:22 Pulse Oximetry 100 06/05/24 12:22 Temperature 97.6 F 06/05/24 13:36 Pulse Rate 59 L 06/05/24 14:33 Respiratory Rate 14 06/05/24 14:33 Blood Pressure 148/100 H 06/05/24 14:33 Pulse Oximetry 99 06/05/24 14:33 Oxygen Delivery Room Air 06/05/24 13:36 Procedures Orthopedic Fracture Reduction Fracture #1: Fracture Reduction time: 13:11 Time Out Performed: Yes Side: right Fracture Reduction Location: tibia and fibula Analgesia: procedural sedation Pre-Procedure Neuro Vascular Exam: normal Technique: direct manipulation Post Reduction X-rays Demonstrate: anatomical reduction Post-reduction neuro exam: intact Post-reduction vascular exam: intact Splint Applied: Yes Patient Tolerated Procedure: well and no complications Orthopedic Splinting/Casting Injury #1: Side: right Lower Extremity Injury Location: lower leg Lower Extremity Immobilizer: stirrup splint Splint: customized in ED Pre-Procedure Neuro Vascular Exam: normal Post-Procedure Neuro Vascular Exam: normal Other Orthopedic Equipment: crutches Procedural Sedation Procedural Sedation #1: Presedation Evaluation: APPEARANCE: Well appearing, no pain, no distress, well-nourished. HEAD: normocephalic, atraumatic. EYES: PERRLA/EOMI, conjunctivae clear. NOSE: Normal no drainage EARS:TMS clear with good light reflex. THROAT: Pharynx clear, no exudate. NECK: Supple. No adenopathy, no masses. RESPIRATORY: Airway patent, respirations nonlabored. Clear to auscultation bilaterally, no rales, rhonchi, wheezing. CARDIOVASCULAR: Regular rate and rhythm without murmurs rubs or gallops. ABDOMINAL: Soft, nontender, nondistended, normal bowel sounds MUSCULOSKELETAL: Right ankle support NEURO: Alert. Cranial nerves II through XII intact. Good gait. Good coordination SKIN: Warm, dry. Normal Color Procedure: Sedation with propofol for reduction of right ankle fracture dislocation Time Out: Time-out was performed Equipment in Room: bag and mask, capnography, site monitor, crash cart, oxygen, pulse oximeter and suction Plan for Sedation: moderate sedation ASA Class: II Mallampati Classification: class I NPO Status: last liquid food (hours ago) Explanation to Patient/Family: Risk/Benefits/Alternatives and Pt/Family agreed with plan Pt. Educated on Procedural Sedation: Yes Re-evaluated immediately prior: Yes Preparation: site monitor applied, pulse oximeter, capnometry used, supplemental O2 applied, reversal agents at bedside, suction/airway equipment at bedside and IV secured IV Propofol dose (mg): 60 Patient Tolerated Procedure: well and no complications Complications: none Total Sedation Time (min): 15 Medical Decision Making MDM Narrative Medical decision making narrative: 58-year-old male presents emergency department for evaluation for a right ankle deformity. Patient does have a trimalleolar fracture with dislocation. This was reduced in the emergency department with near anatomic alignment. Patient does report he feels significantly improved. I did discuss the case with orthopedics and they will see him in the office Sunday with anticipated surgery on Sunday. Patient will be provided crutches for nonweightbearing at home but states he does have a wheelchair that he will most likely is primarily. Patient will be provided medications for pain control and muscle relaxants. Differential Diagnosis Differential Diagnosis: Ankle fracture, ankle dislocation Vital Signs Vital Signs: Vital Signs Temperature 97.2 F L 06/05/24 12:22 Pulse Rate 56 L 06/05/24 12:22 Respiratory Rate 16 06/05/24 12:22 Blood Pressure 160/110 H 06/05/24 12:22 Pulse Oximetry 100 06/05/24 12:22 Temperature 97.6 F 06/05/24 13:36 Pulse Rate 59 L 06/05/24 14:33 Respiratory Rate 14 06/05/24 14:33 Blood Pressure 148/100 H 06/05/24 14:33 Pulse Oximetry 99 06/05/24 14:33 Oxygen Delivery Room Air 06/05/24 13:36 Imaging Data Radiologist's impression: Impressions Ankle X-Ray 06/05/24 12:52 IMPRESSION: 1. Right ankle trimalleolar fracture dislocation. Ankle X-Ray 06/05/24 13:24 IMPRESSION: Near anatomic alignment post reduction Discharge Plan Discharge Clinical Impression: Closed trimalleolar fracture of ankle Patient Disposition: Home Condition: Stable Instructions: Antibiotic Form Additional Instructions: Call the orthopedics office tomorrow. They are anticipating appointment on Sunday in the clinic and anticipated surgery on Sunday. Crutches are being provided for nonweightbearing. Use your wheelchair for ambulation as much as possible. [place] for pain control and Flexeril for muscle spasm. Splint care as directed. If you have any worsening symptoms then please call or return to the emergency department Patient Language: [place] Prescriptions: New cyclobenzaprine 10 mg tablet 10 mg PO BID PRN (Reason: muscle spasm) Qty: 14 0RF hydrocodone-acetaminophen 5-325 mg tablet 1 tablet PO Q12H PRN (Reason: pain) Qty: 14 0RF No Action Benefiber Clear SF (dextrin) 3 gram/3.5 gram powder in packet 1.5 g PO TID Rx Instructions: mix into at least 4 oz water or juice before administering Ultra CoQ10 75 mg capsule 75 mg PO DAILY atenolol 25 mg tablet 25 mg PO QAM lisinopril 5 mg tablet 5 mg PO QAM rosuvastatin 20 mg tablet 20 mg PO DAILY famotidine [Pepcid] 40 mg tablet 40 mg PO DAILY Qty: 90 0RF ondansetron 4 mg tablet,disintegrating 4 mg PO Q8H PRN (Reason: nausea and vomiting) Qty: 12 0RF sertraline 100 mg tablet 100 mg PO QAM Follow-up/Referrals: Gonzalo Gupta MD [Primary Care Provider] - Ludwig Boyd MD [Physician] -
[2024-06-05] MEDS: HYDROmorphone HCL INJ (*CRX) 2 MG/ML VIAL 1 MG IV PUSH (12:42)
--- OUTSIDE RECORDS SUMMARY | 2024-06-05 12:52 | XMS_ITS | Clinical Summary ---
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 Gender Identity Not on file Sexual Orientation Not on file Plan of Treatment Health Maintenance Due Date Last Done Comments Hepatitis C Virus (HCV) Screening 1965 TdaP Immunization 1965 Hepatitis B Immunization (1 of 3 - 19+ 3-dose series) 09/02/1983 Colonoscopy 2009 Colorectal Cancer Screening 2009 Cologuard 2014 Immunochemical Fecal Occult Blood 2014 Pneumococcal Immunization (5 0+ years) (1 of 1 - PCV) 2014 Zoster Immunization (1 of 2) 2014 PSA Discussion 09/02/2019 Influenza Immunization (#1) 2023 SARS-COV-2 Immunization ( - season) 2023 Respiratory Syncytial Virus (RSV) Immunization (Adult) (1 - 1-dose 75+ series) 09/02/2039 Meningococcal Immunization (ACWY) Aged Out No longer eligible based on patient's age to complete this topic Pneumococcal Immunization Combined Aged Out No longer eligible based on patient's age to complete this topic Rotavirus Immunization Aged Out No lo nger eligible based on patient's age to complete this topic
--- OUTSIDE RECORDS SUMMARY | 2024-06-05 12:52 | XMS_ITS | Continuity of Care Document ---
Author Organization [facility] Address [address] [place] [address] Phone Care Team Providers Care Pencil Inspector Name Role Phone Dorys Parmar Unavailable Unavailable Advance Directives Directive Yes / No Effective Date File Name No Information Encounters Encounter Description Practice Location Reason(s) For Visit Diagnoses Date Provider Providers Copied on Encounter [facility], [address], [place], [place], [id number], [place] tel:[phone] [facility] No Information [id number] , [address], [place], [address], [place]. tel:[phone] Family History Family Member Type Diagnosis Age At Onset No Information Payers Payer name Insurance type Covered libertarian ID Authoriza tion(s) No Information Social History Type Description Quantity Date Captured Comments Sex Male Smoking Status No Information Chief Complaint And Reason For Visit No Information Reason For Referral Reason For Referral No Information History Of Present Illness Encounter Date Complaint History Of Prese nt Illness No Information Functional Status Date Functional Assessmen t No Information Instructions Date Instruction Additional Infor mation No Information Assessments Type Assessment Date No Information Patient Care Teams Name Effective Dates (start - stop) Status Members No Information
[2024-06-05] MEDS: SODIUM CHLORIDE 0.9% IV 1,000 ML 999 ML (12:55)
--- NOTE | 2024-06-05 13:19 | PC.NURSE ---
Pt received 60mg propofol by MD Holloway at 12:58pm for reductions/splint of right ankle. Pt tolerated sedation well, remained responsive to verbal, answering questions throughout procedure. Repeat imaging obtained. Pt reports it feels a lot better after splinting. Pt currently conversing with s/o at bedside.
== END 2024-06-05 14:35 | disposition home or self-care (01) ==
PROVIDERS: Emergency Provider Emergency Medicine; PCP Family Medicine
DX: S82.851A Displaced trimalleolar fracture of right lower leg, initial encounter for closed fracture (principal); I10 Essential (primary) hypertension; K21.9 Gastro-esophageal reflux disease without esophagitis; F41.9 Anxiety disorder, unspecified; Z89.029 Acquired absence of unspecified finger(s); W22.8XXA Striking against or struck by other objects, initial encounter; X50.9XXA Other and unspecified overexertion or strenuous movements or postures, initial encounter
CPT/HCPCS: 27818; 73600; 96374; 96375; 99285; J1171; J7030

== ENCOUNTER 2024-06-06 12:35 | Outpatient (CLI) | payer OTHER, SELFPAY ==
--- NOTE | 2024-06-06 12:42 | ECG_ITS ---
Test Date: 2024-06-06 12:50:26 Measurements Intervals [place] Rate: 58 P: 51 CT: 222 QRS: 52 QRSD: 109 T: 43 QT: 419 QTc: 412 Interpretive Statements SINUS BRADYCARDIA WITH FIRST DEGREE AV BLOCK BASELINE ARTIFACT- I, II, III, AVR, AVL, AVF BORDERLINE ECG No previous ECG available for comparison Electronically Signed On 06-06-2024 12:54:39 CDT by Jim Mortensen D.O.
--- OUTSIDE RECORDS SUMMARY | 2024-06-06 12:42 | XMS_ITS | Clinical Summary ---
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
--- OUTSIDE RECORDS SUMMARY | 2024-06-06 12:42 | XMS_ITS | Continuity of Care Document ---
Author Organization [facility] Address [address] [place] [address] Phone Care Team Providers Care Millinery Teacher Name Role Phone Dorys Parmar Unavailable Unavailable Advance Directives Directive Yes / No Effective Date File Name No Information Encounters Encounter Description Practice Location Reason(s) For Visit Diagnoses Date Provider Providers Copied on Encounter [facility], [address], [place], [place], [id number], [place] tel:[phone] [facility] [place] No Information [address] Agata Saul. [address] , [address], [place], [address], [place]. tel:[phone] Family History Family Member Type Diagnosis Age At Onset No Information Payers Payer name Insurance type Covered constitution party ID Authoriza tion(s) No Information Social History [...]
== END 2024-06-06 12:36 | disposition home or self-care (01) ==
LOC: ANHSURGERY 12:40
PROVIDERS: PCP Family Medicine; Visit Provider Orthopaedic Surgery
DX: I10 Essential (primary) hypertension (principal); Z01.818 Encounter for other preprocedural examination; I44.0 Atrioventricular block, first degree
CPT/HCPCS: 93005

== ENCOUNTER 2024-06-10 03:37 | Day surgery (SDC) | payer OTHER, SELFPAY ==
[2024-06-06 11:43] VITALS: BMI 32.2
--- NOTE | 2024-06-06 11:58 | PC.NURSE ---
Report to the Outpatient Waiting Room, entrance under the green pavilion located off [facility], at time ___1230____ on date ___06/10/24____. Planned Procedure Time: ____1430____.? Time changes happen often and if your time is changed the preop area will call you the afternoon before. - You and your visitor will be asked to self-screen and do not enter if you have any COVID symptoms. Please call surgeon if you need to reschedule. - A mask is optional within the hospital at this time. Patients may have clear liquids (water, carbonated beverages, clear teas, apple juice) until 3 hours prior to surgery with a maximum of 20 ounces. - No food from midnight until time of surgery and no smoking, or chewing tobacco (or any form of nicotine). No chewing gum, candy or mints. Take only the following medications with a SIP of water on the morning of surgery: ____atenolol, cyclobenzaprine, sertraline____ DO NOT STOP ANY OF YOUR OTHER PRESCRIPTION MEDICATIONS PRIOR TO SURGERY EXCEPT THE FOLLOWING Hold all vitamins and supplements for 3 days per anesthesiologist. Medications to discontinue per physician please HOLD lisinopril the morning of surgery Please no make-up, nail peruvian, hairspray, perfume, deodorant, or body powder the day of surgery.? No jewelry (including any body piercings) or valuables the day of surgery, leave them at home.? Please take a shower or bath the night before, or the morning of, surgery with an antibacterial soap.? Wear comfortable, loose fitting clothing.? - Jewelry must be removed prior to entering the operating room.? Rings and piercings that are not removed may be cut off. - The hospital will not accept responsibility for valuables.? - Please leave all valuables, including medications, at home the day of surgery. If you are going home after surgery, a licensed test driver must drive you home.? - NO public transportation without another adult if you receive anesthesia. - We recommend that an adult stay with you for 24 hours following discharge. - We also recommend that you do not drive, make important decision, drink alcoholic beverages, or take any drugs that were not prescribed by your health care provider for at least 24 hours after your discharge time. Follow any additional instructions given to you from your surgeon. Telephone instructions given to ____Mark and asked if any additional questions and then verbalized understanding. Patient advised to call surgeon office or pre surgery nurse liaison [phone] if any additional questions.
[2024-06-10] VITALS (9 sets, daily range): BP systolic 135–183; BP diastolic 76–106; PULSE 63–97; RESP 16–20; TEMP 36.6–36.9; O2SAT 94–100
--- NOTE | ~2024-06-10 | XR_ITS ---
EXAMINATION: XR surgery orthopedic DATE: 06/10/2024 16:24 INDICATION: ORIF right ankle fracture TECHNIQUE: 4 fluoroscopic images of the right ankle were obtained during procedure performed by Dr. Alise pérez. Radiologist was not present for the imaging or procedure. The amount of fluoroscopy time u sed during this procedure was 1.1 minutes. Total DAP was 0.057 mGym^2. COMPARISON: 06/05/2024 FINDINGS: Interval reduction and internal fixation of the previous noted trimalleolar fracture of the right ank le. The fracture is now in near-anatomic alignment. The fibular fracture is fixed with interfragmenta ry screw and a lateral plate and screws. The medial malleolus fracture is fixed with a pair of cannul ated lag screws. The posterior malleolus fracture remains unfixed. Ankle mortise appears congruent wi th normal joint space. IMPRESSION: 1. Near-anatomic alignment post open reduction internal fixation of a right ankle trimalleolar fractu re. Reviewed, dictated and finalized at location A. IMPRESSION: 1. Near-anatomic alignment post open reduction internal fixation of a right ank le trimalleolar fracture.
--- OUTSIDE RECORDS SUMMARY | 2024-06-10 03:39 | XMS_ITS | Continuity of Care Document ---
Author Organization [facility] Address [address] [place] [address] Phone Care Team Providers Care Cokeman Name Role Phone Dorys Parmar Unavailable Unavailable Advance Directives Directive Yes / No Effective Date File Name No Information Encounters Encounter Description Practice Location Reason(s) For Visit Diagnoses Date Provider Providers Copied on Encounter [facility], [address], [place], [place], [id number], [place] tel:[phone] [facility] No Information [address] Agata Saul. [address] , [address], [place], [address], [place]. tel:[phone] Family History Family Member Type Diagnosis Age [...]
--- OUTSIDE RECORDS SUMMARY | 2024-06-10 03:39 | XMS_ITS | Clinical Summary ---
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
--- NOTE | 2024-06-10 13:40 | WPDANESEPPF ---
Anes - Initial Pre Proc Eval Procedure: Operation Date: 06/10/24 14:30 Proposed Procedures p Open Reduction Internal Fixation Right Ankle Fracture - Ludwig Boyd MD Date/Time: 06/10/24 13:40 Surgeon: Ludwig Boyd MD Pre Op Diagnosis: right ankle tri-mal fx Patient Data Age: 58 Gender: M Height: 1.78 m Weight: 101.8 kg Allergies Allergy/AdvReac Type Severity Reaction Status Date / Time Penicillins Allergy Unknown HIVES OR Verified 06/10/24 13:35 RASH A CHILD Home Medications ?Medication ?Instructions ?Recorded ?Confirmed ?Type atenolol 25 mg tablet 25 mg PO QAM 12/16/19 06/10/24 History lisinopril 5 mg tablet 5 mg PO QAM 12/16/19 06/10/24 History rosuvastatin 20 mg tablet 20 mg PO DAILY 12/16/19 06/10/24 History sertraline 100 mg tablet 100 mg PO QAM 07/22/20 06/10/24 History cyclobenzaprine 10 mg tablet 10 mg PO BID PRN muscle spasm #14 06/05/24 06/06/24 Rx tabs aspirin 81 mg tablet,delayed 81 mg PO BID 14 days #28 tabs 06/10/24 Rx release dicyclomine 20 mg tablet 20 mg PO BID #30 tabs 06/10/24 06/10/24 Rx famotidine 20 mg tablet (Pepcid) 20 mg PO BID 6 weeks #84 tabs 06/10/24 06/10/24 Rx Patient hx anesthesia problems: none Family hx anesthesia problems: none Results Review: All pre-operative results and documents have been reviewed as part of the pre-operative evaluation. [facility] Past Medical History Medical History Anxiety Acid reflux Seasonal allergies Hypertension Pancreatitis Biliary colic Surgical History Surgical History History of inguinal hernia repair Open left recurrent inguinal hernia repair with mesh 11/01/20 Status post orchiopexy Left testicle; 07/26/20 History of bilateral inguinal hernia repair 07/26/20 History of surgery on wrist Bilateral fracture repair H/O surgical amputation of finger Family History Family History Mother Patient's mother is , Onset Age: 51 Heart disease Father Hypertension Hernia Sibling Hodgkin lymphoma Sibling Diabetes mellitus Heart disease Hypertension Social History Social History Social History: Mr. Figueroa lives at home with his fiance. He is independent in his daily activities. He works at [employer]. His PCP is Dr. Gupta. He would like to be a full code. Smoking status: Never smoker Alcohol intake: never Alcohol use details: NONE SINCE 2018 Substance use: current Substance use type: marijuana Other substance usage details: marijuana use for 40 years Living arrangements: with family Occupation/Education: occupation Gender identity (if verbalized by the patient): Male Spiritual care concerns: No Anes - Eval Final PreProcedure Day of Procedure 06/10/24 13:40 Patient weight: obese Heart: regular rate and rhythm Lungs: clear to auscultation Airway: Mallampati scale class II Neurological: alert and oriented Last oral intake: >/= 8 hours ASA classification: III Emergent: no Anesthetic plan: proceed Anesthesia type and monitoring: general LMA and standard monitoring Results Review: All pre-operative results and documents have been reviewed as part of the pre-operative evaluation. Informed Consent: The patient's anesthetic plan and its attendant risks and benefits were discussed with the patient/family/POA. Questions were solicited and answers provided to the satisfaction of the patient/family/POA.
--- NOTE | 2024-06-10 13:41 | SUR.PREOP ---
HAIR REMOVAL AND SCRUB DEFERRED, REQUESTS THAT SPLINT STAYS INTACT.
[2024-06-10] MEDS: ACETAMINOPHEN 500 MG TABLET 1000 MG PO (13:55)
[2024-06-10] MEDS: KETOROLAC 15 MG/ML VIAL (*BKC) IV PUSH (13:55)
--- NOTE | 2024-06-10 14:02 | PM.IMHP ---
H&P: HPI History of Present Illness Date/Time: 06/10/24 14:02 Chief Complaint: Right ankle fracture dislocation. Narrative: 58-year-old male stepped on tire rolling his ankle suffering a fracture dislocation while at work. He underwent closed reduction and splinting in the emergency department 06/05/24. Complains of moderate ankle pain. No numbness, tingling, or other associated symptoms. Review of Systems Review of Systems: Emergency room visit today due to abdominal symptoms. All systems reviewed & are unremarkable except as noted in HPI and below PMFSH Past Medical History Medical History Anxiety Acid reflux Seasonal allergies Hypertension Pancreatitis Biliary colic Surgical History Surgical History History of inguinal hernia repair Open left recurrent inguinal hernia repair with mesh 11/01/20 Status post orchiopexy Left testicle; 07/26/20 History of bilateral inguinal hernia repair 07/26/20 History of surgery on wrist Bilateral fracture repair H/O surgical amputation of finger Family History Family History Mother Patient's mother is , Onset Age: 51 Heart disease Father Hypertension Hernia Sibling Hodgkin lymphoma Sibling Diabetes mellitus Heart disease Hypertension Social History Social History Social History: Mr. Figueroa lives at home with his fiance. He is independent in his daily activities. He works at [employer]. His PCP is Dr. Gupta. He would like to be a full code. Smoking status: Never smoker Alcohol intake: never Alcohol use details: NONE SINCE 2018 Substance use: current Substance use type: marijuana Other substance usage details: marijuana use for 40 years Living arrangements: with family Occupation/Education: occupation Gender identity (if verbalized by the patient): Male Spiritual care concerns: No Meds Home Medications and Allergies Home Medications ?Medication ?Instructions ?Recorded ?Confirmed ?Type atenolol 25 mg tablet 25 mg PO QAM 12/16/19 06/10/24 History lisinopril 5 mg tablet 5 mg PO QAM 12/16/19 06/10/24 History rosuvastatin 20 mg tablet 20 mg PO DAILY 12/16/19 06/10/24 History sertraline 100 mg tablet 100 mg PO QAM 07/22/20 06/10/24 History cyclobenzaprine 10 mg tablet 10 mg PO BID PRN muscle spasm #14 06/05/24 06/06/24 Rx tabs aspirin 81 mg tablet,delayed 81 mg PO BID 14 days #28 tabs 06/10/24 Rx release dicyclomine 20 mg tablet 20 mg PO BID #30 tabs 06/10/24 06/10/24 Rx famotidine 20 mg tablet (Pepcid) 20 mg PO BID 6 weeks #84 tabs 06/10/24 06/10/24 Rx Allergies Allergy/AdvReac Type Severity Reaction Status Date / Time Penicillins Allergy Unknown HIVES OR Verified 06/10/24 13:35 RASH A CHILD Vital Signs Vital Signs - 24 hr 06/10/24 13:20 06/10/24 13:56 Temperature 36.9 C Pulse Rate 97 Respiratory Rate 18 Blood Pressure 146/106 H 140/76 Pulse Oximetry 100 Oxygen Delivery Room Air Exam Narrative: Comfortable. No distress. Right ankle swelling down. Good overall limb alignment. Wiggles toes. Light touch sensation intact. Skin without rash or lesion. Alert and oriented. Vital signs stable. Right ankle radiographs show severe ankle fracture dislocation with excellent initial postoperative reduction in the emergency department. Displaced fracture of the medial and lateral malleolus. Assessment and Plan Assessment and plan (1) Closed trimalleolar fracture of ankle: Qualifiers: Encounter type: initial encounter Laterality: right Qualified Code(s): S82.851A - Displaced trimalleolar fracture of right lower leg, initial encounter for closed fracture Code(s): S82.853A - Displaced trimalleolar fracture of unspecified lower leg, initial encounter for closed fracture Status: Acute Plan Unstable displaced ankle fracture dislocation will benefit from ORIF. The posterior fragment is small. Nonweightbearing for 2 weeks. Partial weight-bearing for the next 3 weeks with the cast. Anticipate return to work in 3-4 months. Proceed with ORIF right ankle. Risks, benefits, and alternatives discussed.
--- NOTE | 2024-06-10 14:08 | WPDHPUPDATE1 ---
History and Physical Update Update Date/Time: 06/10/24 14:08 History and Physical has been reviewed, including an updated exam of the patient. There are NO changes in the patient's condition. Risks, benefits, and alternatives have been discussed and questions answered. Patient agrees to proceed with procedure.
[2024-06-10] MEDS: ceFAZolin 2 GM/D5W 50 ML 2 GM/50 ML BAG IVPB (14:22)
[2024-06-10] MEDS: BUPIVACAINE/EPINEPHRINE 0.5% 50 ML VIAL 20 ML INFILTRATE (15:10)
[2024-06-10] MEDS: BUPIVACAINE/EPINEPHRINE 0.5% 50 ML VIAL 40 ML INFILTRATE (16:16)
[2024-06-10] MEDS: LACTATED RINGERS 1,000 ML 30 ML IV CONT ×2 (16:39→16:40)
--- NOTE | 2024-06-10 17:01 | P.OP_ITS ---
Procedure Note - Detailed Date of Procedure 06/10/24 Pre-op Diagnosis Right ankle trimalleolar fracture dislocation Post-op Diagnosis Same Procedure Performed ORIF trimalleolar ankle fracture with internal fixation of the lateral and medi al malleoli. Surgeon Ludwig Boyd MD Anesthesia General Findings Significant soft tissue disruption and moderate comminution. Poor bone quality. Description of Procedure A general anesthetic was administered. The limb was prepped and draped in the usual sterile fashion with a well-padded tourniquet high on the thigh. A bump was placed under the hip. The limb was exsanguinated and the tourniquet inflated to 300 millimeters of mercury during the procedure. A longitudinal incision was created at the distal fibula. Careful dissection was carried down to bone. Fibular nerve branches were protected. The fracture was carefully exposed. Callus and debris was irrigated from the wound. The fracture was brought out to length. Reduction was accomplished with the reduction forceps. Fixation was performed with a combination of cortical and cancellous screws. Locking screws were used distally 2 locking screws were placed in the proximal aspect of the plate. Bone quality was poor. Fluoroscopy was used throughout the procedure to confirm anatomic reduction and appropriate placement of the implants. The medial malleolus was exposed with a longitudinal incision. The fracture was cleared of debris and irrigated. Anatomic reduction was obtained with the reduction tool. Biplanar fluoroscopy was used to assess the fracture reduction and guide placement of the K-wire. Two K-wires were placed parallel across the fracture site. The screw lengths were measured and drilled distally only. The partially threaded screws were placed, and the K-wires removed. The tourniquet was released. Meticulous hemostasis was obtained. Wound was closed in layers with 2-0 Vicryl suture 3-0 Monocryl suture and vertical mattress nylon. A sterile dressing with well padded splint was applied. The patient was extubated and brought to the recovery room in stable condition. There were no complications. Implants Arthrex titanium fibular plate with multiple locking and nonlocking screws. 4.0 mm cancellous screws x2 medially. Estimated Blood Loss 25 Drains No Packing No Pathology None sent Complications No immediate complications Condition Stable Disposition PACU [facility] Billing Surgery - Charge Forward: Surgery Billing
== END 2024-06-10 18:20 | disposition home or self-care (01) ==
PROVIDERS: PCP Family Medicine; Visit Provider Orthopaedic Surgery
PROC: (CPT 27822; principal; 2024-06-10 14:30)
DX: S82.851A Displaced trimalleolar fracture of right lower leg, initial encounter for closed fracture (principal); W22.8XXA Striking against or struck by other objects, initial encounter; Y92.69 Other specified industrial and construction area as the place of occurrence of the external cause; F41.9 Anxiety disorder, unspecified; K21.9 Gastro-esophageal reflux disease without esophagitis; I10 Essential (primary) hypertension; F12.90 Cannabis use, unspecified, uncomplicated; E66.9 Obesity, unspecified; Z68.31 Body mass index [BMI] 31.0-31.9, adult; Z79.82 Long term (current) use of aspirin; Z98.890 Other specified postprocedural states; Z87.19 Personal history of other diseases of the digestive system; Z80.7 Family history of other malignant neoplasms of lymphoid, hematopoietic and related tissues; Z82.49 Family history of ischemic heart disease and other diseases of the circulatory system
CPT/HCPCS: 27822; 99199; A9270; C1713; C1769; J0690; J1100; J1171; J1885; J2250; J2405; J2704; J3010; J7120

== ENCOUNTER 2024-06-10 08:14 | Emergency (ER) | payer OTHER, SELFPAY ==
[2024-06-10] VITALS (7 sets, daily range): BP systolic 147–166; BP diastolic 80–99; PULSE 60–83; RESP 10–16; TEMP 36.5; O2SAT 98–100
--- NOTE | ~2024-06-10 | XR_ITS ---
EXAMINATION: XR chest 1V portable DATE: 06/10/2024 10:35 INDICATION: Nausea and vomiting TECHNIQUE: frontal view of the chest was obtained. COMPARISON: Chest radiograph dated 07/26/2020 FINDINGS: The lungs are clear with no focal airspace opacities, pulmonary edema, pleural effusion or pneumothor ax. The cardiomediastinal silhouette is normal. Mild thoracic spondylosis. IMPRESSION: 1. No acute cardiopulmonary disease. Reviewed, dictated and finalized at location A.
--- NOTE | ~2024-06-10 | CT_ITS ---
CT of the Abdomen and Pelvis: Indication: Abdominal pain Technique: 2.5 mm axial scans were obtained through the abdomen and pelvis following intravenous adm inistration of 100 cc of Omnipaque 350. Dose reduction technique was used on this scan by utilizing a utomated exposure control and iterative reconstruction technique. The dose-length product (DLP) was 1 011.36 mGy-cm. COMPARISON: 04/02/2022 Findings: Scans through the lung bases are unremarkable. The liver, spleen, pancreas, gallbladder, adrenals and kidneys are within normal limits. No evidence of aortic aneurysm. No lymphadenopathy. No bowel obstruction or bowel wall thickening. There is no evidence to suggest acute appendicitis. Images through the pelvis were performed. Urinary bladder unremarkable. No pelvic mass seen. No ascit es. Small fat-containing left inguinal hernia present. Impression: No acute abnormality. Small fat-containing left inguinal hernia. Reviewed, dictated and finalized at [facility]. Impression: No acute abnormality. Small fat-containing left inguinal hernia.
--- OUTSIDE RECORDS SUMMARY | 2024-06-10 08:26 | XMS_ITS | Clinical Summary ---
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
--- OUTSIDE RECORDS SUMMARY | 2024-06-10 08:26 | XMS_ITS | Continuity of Care Document ---
Author Organization [facility] Address [address] [place] [address] Phone Care Team Providers Care Bartender Manager Name Role Phone Dorys Parmar Unavailable Unavailable Advance Directives Directive Yes / No Effective Date File Name No Information Encounters Encounter Description Practice Location Reason(s) For Visit Diagnoses Date Provider Providers Copied on Encounter [facility], [address], [place], [place], [id number], [place] tel:[phone] [facility]3] No Information [address] Agata Saul. [address] , [address], [place], [address], [place]. tel:[phone] Family History Family Member Type Diagnosis Age At Onset No Information Payers Payer name Insurance type Covered democrat ID Authoriza tion(s) No Information Social History [...]
[2024-06-10 08:37] LABS: Basophils Percent Auto 0.3 % (0.2-1.2); Eosinophils Percent Auto 0.3 % (0-4.4); Hematocrit 45.4 % (42.0-52.0); Hemoglobin 14.8 g/dL (14.0-18.0); Immature Granulocyte Absolute 0.05 K/mm3 (0.00-0.031); Immature Granulocyte Percent A 0.4 % (0-0.5); Lymphocytes Absolute Auto 2.41 K/mm3 (0.9-3.2); Lymphocytes Percent Auto 21.3 % (18.3-44.2); Mean Corpuscular HGB Conc 32.6 g/dl (32-36); Mean Corpuscular Hemoglobin 29.1 pg (26-34); Mean Corpuscular Volume 89.4 fl (80-100); Mean Platelet Volume 10.8 fl (7.4-10.4); Monocytes Absolute Auto 0.8 K/mm3 (0.1-0.6); Monocytes Percent Auto 6.7 % (2.6-8.5); Neutrophils Absolute Auto 8.1 K/mm3 (1.3-6.7); Platelet Count Result 174 k/mm3 (150-375); Red Blood Count 5.08 M/mm3 (4.6-6.20); Red Cell Distribution Width 13.1 % (11.5-14.5); White Blood Count 11.3 K/mm3 (4.5-10.0)
--- NOTE | 2024-06-10 08:47 | ED.GENADULT ---
HPI - General Adult General Chief complaint: Abdominal Pain Stated complaint: abd pain, nausea, belching Time Seen by Provider: 06/10/24 08:23 History of Present Illness HPI narrative: This is a 58-year-old male the history of chronic abdominal pain presenting to the ED with chief complaint of abdominal pain. Patient says that starting yesterday he developed a sharp/crampy pain in his lower abdomen. It is nonradiating, moderate intensity and comes and goes. He has had this occurred many times in past has been evaluated by many different doctors and they were unable to find a reason. Patient has had some nausea but no vomiting. He recently broke his ankle and took one dose of opiate pain medication. He said that made it constipated said that stop taking the opiates and has been taking Colace instead. Patient is a heavy marijuana user. Patient sustained a ankle fracture last week and was scheduled for surgery with Dr. Boyd later today. Related Data Home Medications ?Medication ?Instructions ?Recorded ?Confirmed ?Last Taken ?Type atenolol 25 mg tablet 25 mg PO QAM 12/16/19 06/06/24 11/01/20 05:00 History lisinopril 5 mg tablet 5 mg PO QAM 12/16/19 06/06/24 07/25/20 History rosuvastatin 20 mg tablet 20 mg PO DAILY 12/16/19 06/06/24 07/25/20 History sertraline 100 mg tablet 100 mg PO QAM 07/22/20 06/06/24 11/01/20 05:00 History Allergies Allergy/AdvReac Type Severity Reaction Status Date / Time Penicillins Allergy Unknown HIVES OR Verified 06/10/24 08:23 RASH A CHILD [facility] Past Medical History Medical History Anxiety Acid reflux Seasonal allergies Hypertension Pancreatitis Biliary colic Surgical History Surgical History History of inguinal hernia repair Open left recurrent inguinal hernia repair with mesh 11/01/20 Status post orchiopexy Left testicle; 07/26/20 History of bilateral inguinal hernia repair 07/26/20 History of surgery on wrist Bilateral fracture repair H/O surgical amputation of finger Family History Family History Mother Patient's mother is , Onset Age: 51 Heart disease Father Hypertension Hernia Sibling Hodgkin lymphoma Sibling Diabetes mellitus Heart disease Hypertension Social History Social History Social History: Mr. Figueroa lives at home with his fiance. He is independent in his daily activities. He works at [employer]. His PCP is Dr. Gupta. He would like to be a full code. Smoking status: Never smoker Alcohol intake: never Alcohol use details: NONE SINCE 2018 Substance use: current Substance use type: marijuana Other substance usage details: marijuana use for 40 years Living arrangements: with family Occupation/Education: occupation Gender identity (if verbalized by the patient): Male Spiritual care concerns: No Exam Narrative: APPEARANCE: No apparent distress. Head: atraumatic. EYES: EOMI, NOSE: Atraumatic NECK: Trachea midline RESPIRATORY: No increased rate of breathing, CTAB CARDIOVASCULAR: RRR, no peripheral edema ABDOMINAL: Tenderness to palpation in the epigastric region, no guarding no rebound, no tenderness in the lower abdominal region with the patient describes his pain MUSCULOSKELETAl: No obvious deformities NEURO: Alert. Moving 4/4 extremities SKIN:: Warm, dry. Normal color PSYCHIATRIC: Normal affect Course Vital Signs Vital signs: Vital Signs Temperature 97.7 F 06/10/24 08:17 Pulse Rate 64 06/10/24 08:17 Respiratory Rate 13 06/10/24 08:17 Blood Pressure 157/85 H 06/10/24 08:17 Pulse Oximetry 98 06/10/24 08:17 Oxygen Delivery Room Air 06/10/24 08:17 Temperature 97.7 F 06/10/24 08:17 Pulse Rate 70 06/10/24 10:30 Respiratory Rate 14 06/10/24 10:30 Blood Pressure 151/99 H 06/10/24 10:30 Pulse Oximetry 99 06/10/24 10:30 Oxygen Delivery Room Air 06/10/24 08:17 Medical Decision Making [facility] Narrative Medical decision making narrative: -Course: 58-year-old male with a history of heavy marijuana use and chronic abdominal pain presenting for abdominal pain. He reports pain in the lower abdomen although on exam he is actually tender in the epigastric region. He says he has been treated with Pepcid in the past but stopped taking it because his symptoms resolved. Differential includes gastritis/GERD, cannabinoid hyperemesis, constipation, colonic spasm from Colace. Patient was given fluids, Pepcid, Zofran and Dilaudid with minimal improvement. Given 5 mg of Haldol for cannabinoid hyperemesis. Laboratory studies and imaging were unremarkable. Re-evaluation the patient is resting comfortably in bed. Patient has surgery for his ankle this afternoon. Ortho has come to evaluate patient be going to surgery. He will be discharged with medications for his abdominal discomfort. Primary care follow-up. Vital Signs Vital Signs: Vital Signs Temperature 97.7 F 06/10/24 08:17 Pulse Rate 64 06/10/24 08:17 Respiratory Rate 13 06/10/24 08:17 Blood Pressure 157/85 H 06/10/24 08:17 Pulse Oximetry 98 06/10/24 08:17 Oxygen Delivery Room Air 06/10/24 08:17 Temperature 97.7 F 06/10/24 08:17 Pulse Rate 70 06/10/24 10:30 Respiratory Rate 14 06/10/24 10:30 Blood Pressure 151/99 H 06/10/24 10:30 Pulse Oximetry 99 06/10/24 10:30 Oxygen Delivery Room Air 06/10/24 08:17 Lab Data 06/10/24 08:29 06/10/24 08:29 Labs: Lab Results 06/10/24 06/10/24 Range/Units 08:29 10:28 WBC 11.3 H (4.5-10.0) K/mm3 RBC 5.08 (4.6-6.20) M/mm3 Hgb 14.8 (14.0-18.0) g/dL Hct 45.4 (42.0-52.0) % MCV 89.4 (80-100) fl MCH 29.1 (26-34) pg MCHC 32.6 (32-36) g/dl RDW 13.1 (11.5-14.5) % Plt Count 174 (150-375) k/mm3 MPV 10.8 H (7.4-10.4) fl Immature Gran % (Auto) 0.4 (0-0.5) % Neut % (Auto) 71.0 (45.5-73.1) % Lymph % (Auto) 21.3 (18.3-44.2) % [place] % (Auto) 6.7 (2.6-8.5) % Eos % (Auto) 0.3 (0-4.4) % Baso % (Auto) 0.3 (0.2-1.2) % Lymph # (Auto) 2.41 (0.9-3.2) K/mm3 [place] # (Auto) 0.8 H (0.1-0.6) K/mm3 Eos # (Auto) 0.0 (0-0.3) K/mm3 Baso # (Auto) 0.0 (0.0-0.1) K/mm3 Abs Immat Gran (auto) 0.05 H (0.00-0.031) K/mm3 Absolute Neuts (auto) 8.1 H (1.3-6.7) K/mm3 Absolute Nucleated RBC 0.000 (0.0-0.012) K/mm3 Nucleated RBC % 0.0 (0.0-0.2) % Sodium 138 (137-145) mmol/L Potassium 4.2 (3.4-5.0) mmol/L Chloride 103 (98-107) mmol/L Carbon Dioxide 24 (22-30) mmol/L Anion Gap 11 (4-12) mmol/L BUN 18 (9-20) mg/dL Creatinine 1.08 (0.7-1.3) mg/dL Estim Creat Clear Calc 77 ml/min Estimated GFR > 60 (59 - ) Glucose 143 H (65-110) mg/dL Calcium 9.6 (8.4-10.2) mg/dL Total Bilirubin 0.8 (0.2-1.3) mg/dL AST 40 (17-59) U/L ALT 34 (6-50) U/L Alkaline Phosphatase 120 (38-126) U/L Total Protein 8.0 (6.3-8.2) g/dL Albumin 4.6 (3.5-5.1) g/dL Lipase 51 (23-300) U/L Urine Color Yellow (Yellow) Urine Appearance Clear (Clear) Urine pH 5.5 (5.0-9.0) Ur Specific [place] > 1.045 H (1.001-1.035) Urine Protein Negative (Negative) mg/dL Urine Glucose (UA) Negative (Negative) mg/dL Urine Ketones Negative (Negative) mg/dL Ur Blood (Man) Negative (Negative) Urine Nitrate Negative (Negative) Urine Bilirubin Negative (Negative) Urine Urobilinogen 0.2 (<2.0) mg/dL Leukocyte Esterase Rfl Negative (Negative) DIAMOND/UL Discharge Plan Discharge Clinical Impression: Abdominal pain Patient Disposition: Home Condition: Stable Instructions: Antibiotic Form, Epigastric Pain (ED) Additional Instructions: You were seen in the emergency department for abdominal pain. Please follow-up with the GI doctor listed below. Please complete a course of Pepcid. You can use Bentyl for abdominal cramping. Please stop using marijuana as that could be causing your symptoms. Please return to ED if you develop any new or worsening symptoms, including fevers, severe abdominal pain or intractable nausea and vomiting. Patient Language: Bulgarian Prescriptions: New famotidine [Pepcid] 20 mg tablet 20 mg PO BID 42 Days Qty: 84 0RF dicyclomine 20 mg tablet 20 mg PO BID Qty: 30 0RF No Action atenolol 25 mg tablet 25 mg PO QAM lisinopril 5 mg tablet 5 mg PO QAM rosuvastatin 20 mg tablet 20 mg PO DAILY cyclobenzaprine 10 mg tablet 10 mg PO BID PRN (Reason: muscle spasm) Qty: 14 0RF sertraline 100 mg tablet 100 mg PO QAM Follow-up/Referrals: Gonzalo Gupta MD [Primary Care Provider] - Mack Davila MD [Physician] - 1 Week (Abdominal pain )
--- OUTSIDE RECORDS SUMMARY | 2024-06-10 08:51 | XMS_ITS | Clinical Summary ---
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
[2024-06-10 08:52] LABS: Alanine Aminotransferase 34 U/L (6-50); Albumin Level 4.6 g/dL (3.5-5.1); Alkaline Phosphatase 120 U/L (38-126); Anion Gap 11 mmol/L (4-12); Aspartate Amino Transferase 40 U/L (17-59); Bilirubin,Total 0.8 mg/dL (0.2-1.3); Blood Urea Nitrogen 18 mg/dL (9-20); Calcium 9.6 mg/dL (8.4-10.2); Carbon Dioxide 24 mmol/L (22-30); Chloride 103 mmol/L (98-107); Estimated CRCL calculation 77 ml/min; Estimated Glomerular Filt Rate > 60; Glucose 143 mg/dL (65-110); Lipase 51 U/L (23-300); Potassium 4.2 mmol/L (3.4-5.0); Sodium 138 mmol/L (137-145)
[2024-06-10] MEDS: ONDANSETRON INJ 4 MG/2 ML VIAL IV PUSH (09:10)
[2024-06-10] MEDS: SODIUM CHLORIDE 0.9% IV 1,000 ML 999 ML IV CONT (09:10)
[2024-06-10] MEDS: HYDROmorphone HCL INJ (*CRX) 2 MG/ML VIAL 0.5 MG IV PUSH (09:10)
[2024-06-10] MEDS: FAMOTIDINE 20 MG/2 ML VIAL IV PUSH (09:11)
[2024-06-10] MEDS: HALOPERIDOL LACTATE 5 MG/ML VIAL IM (10:15)
[2024-06-10 10:35] LABS: Add Urine Microscopic? NO; Appearance Urine Clear (Clear); Bilirubin Urine Negative (Negative); Blood Urine Negative (Negative); Color Urine Yellow (Yellow); Glucose Urine UA Negative (Negative); Ketones Urine Negative (Negative); Leukocyte Esterase Ur Negative LEU/UL (Negative); Nitrate Urine Negative (Negative); Protein Urine Negative (Negative); Specific Grav Ur > 1.045 (1.001-1.035); Urobilinogen Urine 0.2 mg/dL (<2.0); pH Urine 5.5 (5.0-9.0)
--- NOTE | 2024-06-10 12:14 | PC.NURSE ---
Dr. Boyd at bedside talking with pt. and .
--- NOTE | 2024-06-10 12:15 | PC.NURSE ---
Dr. Hightower at bedside updating pt. and pt. .
== END 2024-06-10 13:06 | disposition home or self-care (01) ==
PROVIDERS: Emergency Provider Emergency Medicine; PCP Family Medicine
DX: R10.9 Unspecified abdominal pain (principal); F41.9 Anxiety disorder, unspecified; I10 Essential (primary) hypertension
CPT/HCPCS: 36415; 71045; 74177; 80053; 81003; 83690; 85025; 96361; 96372; 96374; 96375; 99284; J1171; J1630; J2405; J7030; Q9967

== ENCOUNTER 2024-11-26 08:48 | Outpatient (CLI) | payer OTHER, SELFPAY ==
--- NOTE | ~2024-11-26 | XR_ITS ---
EXAMINATION: XR chest 2V, 11/26/2024 9:05 CDT HISTORY: SOB;WHEEZING, SMOKER COMPARISON: No comparisons available. Technique: 2 views obtained. Findings: The lungs are clear, no effusion. No pneumothorax. Heart is normal size. Mediastinal and hilar contours are within normal limits. Bony thorax no acute abnormality. Impression: No acute cardiopulmonary abnormality. Reviewed, dictated and finalized at location P. Impression: No acute cardiopulmonary abnormality.
== END 2024-11-26 08:49 | disposition home or self-care (01) ==
LOC: ANHIMG 08:54
PROVIDERS: PCP Family Medicine; Visit Provider Nurse Practitioner Family
DX: R06.02 Shortness of breath (principal); R06.2 Wheezing
CPT/HCPCS: 71046